=== PATIENT | male | born 1960 | race Caucasian/White ===

== ENCOUNTER 2019-03-28 21:46 | Inpatient (IN) | payer BC ==
[~2019-03-28] VITALS: Ht 177.8 cm; Wt 120.0 kg
[2019-03-28] MEDS ORDERED: nitroGLYCERIN 0.4mg SUBLingual tab SL PRN ×2 (22:15→23:15)
[2019-03-28 22:17] LABS: BASOPHILS # (AUTO) 0.1 X10'3 (0-0.2); BASOPHILS % (AUTO) 1.2 % (0-1); EOSINOPHILS # (AUTO) 0.3 X10'3 (0-0.9); EOSINOPHILS % (AUTO) 4.1 % (0-6); HEMATOCRIT 42.6 % (42.0-52.0); HEMOGLOBIN 14.6 g/dl (14.0-17.9); LYMPHOCYTES # (AUTO) 1.9 X10'3 (1.1-4.8); LYMPHOCYTES % (AUTO) 22.2 % (21-51); MEAN CORPUSCULAR HEMOGLOBIN 32.8 PG (27.0-31.0); MEAN CORPUSCULAR HGB CONC 34.4 g/dL (33.0-36.5); MEAN CORPUSCULAR VOLUME 95.3 FL (78-98); MEAN PLATELET VOLUME 10.5 FL (7.4-10.4); MONOCYTES # (AUTO) 0.7 X10'3 (0-0.9); MONOCYTES % (AUTO) 8.4 % (2-12); NEUTROPHILS # (AUTO) 5.3 X10'3 (1.8-7.7); NEUTROPHILS % (AUTO) 64.1 % (42-75); PLATELET COUNT 144 X10'3 (140-440); RED BLOOD COUNT 4.47 X10'6 (4.70-6.10); WHITE BLOOD COUNT 8.3 X10'3 (4.5-11.0)
[2019-03-28 22:36] LABS: ALANINE AMINOTRANSFERASE 30 U/L (12-78); ALBUMIN 3.7 G/DL (3.4-5.0); ALBUMIN/GLOBULIN RATIO 1.1 (1.1-1.5); ALKALINE PHOSPHATASE 102 IU/L (46-116); ANION GAP 15 (8-16); ASPARTATE AMINO TRANSFERASE 18 U/L (10-37); BILIRUBIN,TOTAL 0.2 MG/DL (0.1-1.0); BLOOD UREA NITROGEN 16 MG/DL (7-18); CALCIUM 8.7 MG/DL (8.5-10.1); CHLORIDE 103 MMOL/L (99-107); CREATININE 1.33 MG/DL (0.60-1.10); GLUCOSE 170 MG/DL (70-104); POTASSIUM 3.9 MMOL/L (3.5-5.1); SODIUM 138 MMOL/L (135-145); TOTAL CARBON DIOXIDE 20.5 MMOL/L (24-32); eGFR 55 ML/MIN
[2019-03-28] MEDS ORDERED: FLO0.4C PO (23:04)
[2019-03-28] MEDS ORDERED: SIMV10TA2 PO (23:04)
[2019-03-28] MEDS ORDERED: OMEP40CA13 PO (23:04)
[2019-03-28] MEDS ORDERED: METF500T PO (23:04)
[2019-03-28] MEDS ORDERED: NABU750T2 PO (23:04)
[2019-03-28 23:11] LABS: LARGE PLATELETS FEW; PLATELET ESTIMATE NORMAL
[2019-03-28] MEDS ORDERED: magnesium hydroxide 30ml (MOM) UD suspension PO PRN (23:15)
[2019-03-28] MEDS ORDERED: aminophylline 250mg/10ml inj. IV PRN (23:15)
[2019-03-28] MEDS ORDERED: mag hydrox/Alum hydrox/simeth 30ml oral suspension PO PRN (23:15)
[2019-03-28] MEDS ORDERED: regadenoson 0.4mg/5ml syringe IV PRN (23:15)
[2019-03-28] MEDS ORDERED: acetaminophen 325mg tablet PO PRN (23:15)
[2019-03-28] MEDS ORDERED: metoprolol tartrate 1mg/ml inj IV PRN (23:15)
[2019-03-28] MEDS ORDERED: morphine 2 MG/ML inj. syringe IV PRN ×2 (23:15)
[2019-03-28] MEDS ORDERED: ondansetron/PF 4mg/2ml inj IV PRN (23:15)
[2019-03-28] MEDS: normal saline 1000ml 1,000 ML IV SCH (23:42)
[2019-03-29] VITALS (16 sets, daily range): BP systolic 129–172; BP diastolic 72–88
--- NOTE | 2019-03-29 00:57 | NUR ---
Pt. given hospital bed at this time.
[2019-03-29 01:44] LABS: ALANINE AMINOTRANSFERASE 28 U/L (12-78); ALBUMIN 3.3 G/DL (3.4-5.0); ALBUMIN/GLOBULIN RATIO 1.1 (1.1-1.5); ALKALINE PHOSPHATASE 93 IU/L (46-116); ANION GAP 11 (8-16); ASPARTATE AMINO TRANSFERASE 15 U/L (10-37); BILIRUBIN,TOTAL 0.2 MG/DL (0.1-1.0); BLOOD UREA NITROGEN 17 MG/DL (7-18); BUN/CREATININE RATIO 13.3 (5.4-32.0); CALCIUM 8.6 MG/DL (8.5-10.1); CHLORIDE 103 MMOL/L (99-107); CREATININE 1.28 MG/DL (0.60-1.10); GLUCOSE 163 MG/DL (70-104); POTASSIUM 4.1 MMOL/L (3.5-5.1); SODIUM 139 MMOL/L (135-145); TOTAL CARBON DIOXIDE 25.5 MMOL/L (24-32); TOTAL PROTEIN 6.3 G/DL (6.4-8.2); eGFR 57 ML/MIN
--- NOTE | 2019-03-29 02:57 | NUR ---
Pt. sleeping comfortably on his back. VS WNL. Rhytm NSR at a rate of 69/min.
--- NOTE | 2019-03-29 05:10 | NUR ---
Pt. continous to sleep comfortably. VS WNL. NSR at rate of 64/min.
--- NOTE | 2019-03-29 06:50 | NUR ---
Received report from IRAIDA Davis. Awaiting patient arrival to PCU.
--- NOTE | 2019-03-29 07:20 | NUR ---
Patient arrived to PCU 3024A on hospital bed from ED. Patient oriented to room and to call light. Vital signs: T 97.8, HR 60, RR: 18, O2: 98% on room air, BP 146/82. Pain 0/10. Telemetry monitoring initiated. All immediate needs met at this time.
[2019-03-29] MEDS ORDERED: aspirin 81mg tablet.DR PO SCH (08:00)
[2019-03-29 10:50] LABS: BASOPHILS # (AUTO) 0.1 X10'3 (0-0.2); BASOPHILS % (AUTO) 0.8 % (0-1); EOSINOPHILS # (AUTO) 0.3 X10'3 (0-0.9); EOSINOPHILS % (AUTO) 3.3 % (0-6); HEMATOCRIT 42.5 % (42.0-52.0); HEMOGLOBIN 14.7 g/dl (14.0-17.9); LYMPHOCYTES # (AUTO) 1.4 X10'3 (1.1-4.8); LYMPHOCYTES % (AUTO) 18.4 % (21-51); MEAN CORPUSCULAR HEMOGLOBIN 32.8 PG (27.0-31.0); MEAN CORPUSCULAR HGB CONC 34.6 g/dL (33.0-36.5); MEAN CORPUSCULAR VOLUME 94.8 FL (78-98); MEAN PLATELET VOLUME 10.5 FL (7.4-10.4); MONOCYTES # (AUTO) 0.7 X10'3 (0-0.9); NEUTROPHILS # (AUTO) 5.3 X10'3 (1.8-7.7); NEUTROPHILS % (AUTO) 68.5 % (42-75); PLATELET COUNT 145 X10'3 (140-440); RED BLOOD COUNT 4.48 X10'6 (4.70-6.10); RED CELL DISTRIBUTION WIDTH 12.9 % (11.5-14.5); WHITE BLOOD COUNT 7.8 X10'3 (4.5-11.0)
[2019-03-29] MEDS: atorvastatin 20mg tablet PO SCH (11:18)
[2019-03-29] MEDS: carVEDilol 3.125mg tablet PO SCH ×2 (11:18→20:27)
[2019-03-29] MEDS: normal saline 1000ml 1,000 ML IV SCH ×4 (11:19→21:53)
[2019-03-29] MEDS ORDERED: pneumococcal 23-VAL P-sac vacc 25 mcg/0.5ml vial IMVAC ONE (12:25)
[2019-03-29] MEDS ORDERED: fentaNYL/PF 50MCG/1 ML 2ML syringe ONE ×2 (16:00→16:31)
[2019-03-29] MEDS ORDERED: midazolam 2 mg/2 ml injection ONE ×2 (16:00→16:31)
[2019-03-29] MEDS ORDERED: iohexol 350MG/ML 100ml bottle IV ONE (16:01)
[2019-03-29] MEDS ORDERED: iohexol 350 MG/ML 50ML vial IV ONE (16:01)
[2019-03-29] MEDS ORDERED: LIDOcaine 1% (10mg/ml)w/preservative injection 20ml MDV ONE (16:01)
[2019-03-29] MEDS ORDERED: diphenhydrAMINE 50 mg/ml inj ONE (16:41)
[2019-03-29] MEDS ORDERED: tirofiban 5mg in NS 100mL 100 ML IV ONE (16:50)
[2019-03-29] MEDS ORDERED: heparin 1,000unit/ml 10ml vial 10 ML ONE (16:50)
[2019-03-29] MEDS ORDERED: heparin 25,000 UNIT/250ml bag 250 ML IV ONE (16:50)
[2019-03-29] MEDS ORDERED: methylPREDNISolone sod succ 125mg/2ml vial IV ONE (16:55)
[2019-03-29] MEDS ORDERED: predniSONE 20 mg tablet PO SCH (17:00)
[2019-03-29] MEDS ORDERED: nitroGLYCERIN-Tridil 50MG/D5W 250 ML IV ONE (17:13)
--- NOTE | 2019-03-29 17:41 | NUR ---
PAGER ID: [phone] MESSAGE: RE: John Garcia [id number]. FYI - patient had reaction to contrast during angiogram and sheath is still in place. Patient being transferred to ICU 2009. Thank you. Carla
[2019-03-29] MEDS ORDERED: insulin Lispro (HumaLOG) vial - multi-dose SQ SCH (18:00)
[2019-03-29] MEDS ORDERED: dextrose ORAL solution 15 GM/59 ML bottle PO PRN ×2 (18:00)
[2019-03-29] MEDS ORDERED: MESSAGE TO PHARMACY PO ONE (18:00)
[2019-03-29] MEDS ORDERED: dextrose 50%-water 50ml dispensing syringe IV PRN ×2 (18:00)
[2019-03-29] MEDS ORDERED: glucagon, human recombinant 1mg kit SUBCUT PRN (18:00)
[2019-03-29] MEDS ORDERED: cyclobenzaprine 10mg tablet PO PRN (18:05)
[2019-03-29] MEDS ORDERED: HYDROcodone/acetaminophen 10/325mg tab PO PRN ×2 (18:05)
[2019-03-29] MEDS ORDERED: magnesium hydroxide 30ml (MOM) UD suspension PO PRN (18:05)
[2019-03-29] MEDS ORDERED: acetaminophen 325mg tablet PO PRN (18:05)
[2019-03-29] MEDS ORDERED: proCHLORperazine 10 MG/2 ml inj IV PRN (18:05)
[2019-03-29] MEDS ORDERED: OXAZEpam 15mg capsule PO PRN (18:05)
--- NOTE | 2019-03-29 18:43 | NUR ---
Patient in room CICU 2009. I have received report from IRAIDA Portillo and had the opportunity to ask questions and assume patient care. Patient awake for bedside report and stable at this time. On room air with nitroglycerin infusing at 10 mcg, heparin at 10 U, and NS at 100 mL/hr. Will continue to monitor closely.
[2019-03-29] MEDS ORDERED: amLODIPine 2.5mg tablet PO SCH (20:00)
[2019-03-29] MEDS: tamsulosin 0.4mg capsule PO SCH (20:26)
[2019-03-29] MEDS: docusate sod 100mg capsule PO SCH (20:27)
[2019-03-29 20:53] LABS: HEMOGLOBIN A1C 7.5 % (4.5-6.2)
[2019-03-29] MEDS ORDERED: non-formulary drug (Simvastatin (Zocor) 1 TAB) PO SCH (21:00)
[2019-03-29] MEDS ORDERED: insulin glargine (Lantus) pen - multi-dose SQ SCH (21:00)
[2019-03-30] VITALS (25 sets, daily range): BP systolic 103–178; BP diastolic 59–91
[2019-03-30] MEDS ORDERED: heparin 25,000 UNIT/250ml bag 250 ML IV SCH (01:17)
[2019-03-30] MEDS ORDERED: heparin 10,000 units/1 ML INJ IV PRN (01:20)
[2019-03-30] MEDS ORDERED: nitroGLYCERIN-Tridil 50MG/D5W 250 ML IV SCH (02:25)
[2019-03-30 03:37] LABS: BASOPHILS # (AUTO) 0.1 X10'3 (0-0.2); BASOPHILS % (AUTO) 0.8 % (0-1); EOSINOPHILS % (AUTO) 0.1 % (0-6); HEMATOCRIT 42.8 % (42.0-52.0); HEMOGLOBIN 14.7 g/dl (14.0-17.9); LYMPHOCYTES # (AUTO) 0.7 X10'3 (1.1-4.8); LYMPHOCYTES % (AUTO) 7.6 % (21-51); MEAN CORPUSCULAR HEMOGLOBIN 32.5 PG (27.0-31.0); MEAN CORPUSCULAR HGB CONC 34.4 g/dL (33.0-36.5); MEAN CORPUSCULAR VOLUME 94.4 FL (78-98); MEAN PLATELET VOLUME 10.8 FL (7.4-10.4); MONOCYTES # (AUTO) 0.1 X10'3 (0-0.9); MONOCYTES % (AUTO) 0.8 % (2-12); NEUTROPHILS # (AUTO) 8.8 X10'3 (1.8-7.7); NEUTROPHILS % (AUTO) 90.7 % (42-75); PLATELET COUNT 150 X10'3 (140-440); RED BLOOD COUNT 4.53 X10'6 (4.70-6.10); WHITE BLOOD COUNT 9.7 X10'3 (4.5-11.0)
[2019-03-30 03:46] LABS: ALBUMIN 3.3 G/DL (3.4-5.0); ANION GAP 9 (8-16); BLOOD UREA NITROGEN 18 MG/DL (7-18); BUN/CREATININE RATIO 22.5 (5.4-32.0); CALCIUM 8.6 MG/DL (8.5-10.1); CHLORIDE 104 MMOL/L (99-107); GLUCOSE 242 MG/DL (70-104); POTASSIUM 4.2 MMOL/L (3.5-5.1); SODIUM 135 MMOL/L (135-145); TOTAL CARBON DIOXIDE 22.3 MMOL/L (24-32); eGFR > 90 ML/MIN
--- NOTE | 2019-03-30 06:39 | NUR ---
Problems reprioritized. Patient report given, questions answered & plan of care reviewed with IRAIDA Reyes.
--- NOTE | 2019-03-30 06:44 | NUR ---
Patient in room CICU 2009. I have received report from IRAIDA Breen and had the opportunity to ask questions and assume patient care.
[2019-03-30 06:53] LABS: LARGE PLATELETS FEW; PLATELET ESTIMATE NORMAL
[2019-03-30] MEDS ORDERED: MALTODEXTRIN/FRUCTOSE 0.68 KCAL/ML LIQUID 296ML BOTTLE PO ONE (07:15)
[2019-03-30] MEDS ORDERED: gabapentin 400mg capsule PO ONE (07:15)
[2019-03-30] MEDS ORDERED: cefazolin/dext.iso 2gm/100ml 100 ML IV ONE (07:15)
[2019-03-30] MEDS ORDERED: MESSAGE TO NURSING PO ONE ×4 (07:15→10:00)
[2019-03-30] MEDS ORDERED: pantoprazole 40mg Tablet.DR PO SCH (07:30)
[2019-03-30] MEDS ORDERED: ceFAZolin/D5W- 1GM premix 50 ML IV ONE (07:35)
[2019-03-30] MEDS ORDERED: insulin Lispro (HumaLOG) vial - multi-dose SQ STA (07:47)
[2019-03-30] MEDS ORDERED: predniSONE 20 mg tablet PO SCH (08:00)
[2019-03-30] MEDS ORDERED: aspirin 81mg tab.chew PO SCH (08:00)
[2019-03-30] MEDS ORDERED: mupirocin 2% ointment 22GM NS SCH (08:00)
[2019-03-30] MEDS ORDERED: ROPIVAcaine 0.5% (5mg/ml) 30ml vial ONE (08:30)
[2019-03-30] MEDS: tamsulosin 0.4mg capsule PO SCH (08:45)
[2019-03-30] MEDS: docusate sod 100mg capsule PO SCH ×2 (08:45→20:00)
[2019-03-30] MEDS: carVEDilol 3.125mg tablet PO SCH (08:46)
[2019-03-30] MEDS: atorvastatin 20mg tablet PO SCH (08:46)
[2019-03-30 10:36] LABS: PARTIAL THROMBOPLASTIN TIME 44 SECONDS (22-32)
[2019-03-30 10:41] LABS: CHOL/HDL RATIO 3.7 (0.00-4.99); CHOLESTEROL 177 MG/DL (0-200); HDL CHOLESTEROL 48 MG/DL (35-60); LDL CHOLESTEROL 122 MG/DL (50-100); TRIGLYCERIDES 85 MG/DL (20-135)
[2019-03-30] MEDS ORDERED: LORazepam 2 mg/ml vial IV ONE (11:00)
[2019-03-30] MEDS ORDERED: famotidine 10mg tablet PO ONE (11:00)
[2019-03-30] MEDS ORDERED: dextrose 50%-water 50ml dispensing syringe IV PRN ×2 (11:10→15:25)
[2019-03-30] MEDS ORDERED: MIDAZolam 5mg/5ml vial ONE (11:10)
[2019-03-30] MEDS ORDERED: SUFENTANIL CITRATE 50 MCG/ML 2ml ampule IV ONE (11:10)
[2019-03-30] MEDS ORDERED: propofol inj 20 ML IV ONE (11:10)
[2019-03-30 11:11] LABS: ABG BASE EXCESS 0.6 mmol/L (-2.0-3.0); ABG HCO3 24.1 mmol/L (22.0-26.0); ABG OXYGEN SATURATION 93.5 % (95-98); ABG PCO2 (T) 35.4 mmHg (35.0-45.0); ABG PH (T) 7.451 (7.350-7.450); ABG PO2 (T) 65.8 mmHg (83-108); ALLEN'S TEST Positive; FCOHb 0.3 % (0.5-1.5); FMetHb 0.2 % (0.3-1.12); TOTAL HEMOGLOBIN 15.1 G/dl (14.0-17.9)
--- NOTE | 2019-03-30 11:30 | NUR ---
Pre op CABG check list reviewed with surgical RNs, all procedures,skin prep,lab work and teaching complete,family at bedside pt remains npo,ensure liquid drink given at 100 blood glucose rechecked =312,surgical RNs aware,pt sent to surgery at 1145
[2019-03-30] MEDS ORDERED: sevoflurane 250ml liquid IH ONE (11:53)
[2019-03-30] MEDS ORDERED: aminocaproic acid 250 MG/1 ML inj. ONE (11:53)
[2019-03-30] MEDS ORDERED: nitroGLYCERIN in D5W 50mg/250ml (Tridil) infusion IV ONE (11:53)
[2019-03-30] MEDS ORDERED: protamine sulf. 10mg/ml inj. IV ONE (11:53)
[2019-03-30 12:17] LABS: CLARITY,URINE CLEAR (Clear); COLOR,URINE STRAW (Yellow); GLUCOSE, URINE >=1000 mg/dl (Neg); KETONES,URINE NEGATIVE (Neg); LEUKOCYTE ESTERASE ,URINE NEGATIVE (Neg); NITRITES, URINE NEGATIVE (Neg); OCCULT BLOOD,URINE NEGATIVE (Neg); PROTEIN,URINE NEGATIVE (Neg); UROBILINOGEN,URINE 0.2 E.U/dL (0.2-1.0)
[2019-03-30 12:26] LABS: UA COLLECTION TYPE VOIDED
[2019-03-30 12:27] LABS: BACTERIA,URINE NONE SEEN /HPF (Neg); MUCUS STRANDS NONE SEEN /LPF (Neg); RBC,URINE 0-2 /HPF (0-2); SQUAMOUS EPITHELIAL CELL,UR NONE SEEN /LPF (FEW); WBC,URINE 0-4 /HPF (0-4)
[2019-03-30 12:45] LABS: ABG BASE EXCESS -4.8 mmol/L (-2.0-3.0); ABG HCO3 20.9 mmol/L (22.0-26.0); ABG OXYGEN SATURATION 92.5 % (95-98); ABG PH 7.326 (7.350-7.450); ABG PO2 66.9 mmHg (60.0-100.0); CL (ABG) 105 mmol/L (99-107); FCOHb 1.1 % (0.5-1.5); FMetHb 0.2 % (0.3-1.12); FO2Hb 91.3 % (94-100); GLUCOSE (ABG) 283 mg/dl (70-104); IONIZED CA (ABG) 1.21 mmol/L (1.03-1.32); K (ABG) 4.2 mmol/L (3.3-5.1); NA (ABG) 137 mmol/L (135-145); TOTAL HEMOGLOBIN 14.2 G/dl (14.0-17.9)
[2019-03-30] MEDS ORDERED: heparin 10,000 units/1 ML INJ IR ONE (13:07)
[2019-03-30 13:15] LABS: ABG BASE EXCESS VENOUS -4.8 mmol/L; ABG HCO3 VENOUS 22.2 mmol/L; ABG PO2 VENOUS 48.5 mmHg; CL (ABG) 104 mmol/L (99-107); FCOHb VENOUS 1.2 %; FHHb VENOUS 18.9 %; FMetHb VENOUS 0.1 %; FO2Hb VENOUS 79.8 %; GLUCOSE (ABG) 288 mg/dl (70-104); IONIZED CA (ABG) 1.18 mmol/L (1.03-1.32); K (ABG) 4.4 mmol/L (3.3-5.1); NA (ABG) 137 mmol/L (135-145)
[2019-03-30 13:35] LABS: ACT @ 1.70 U 235 SEC (193-297); ACT @ 2.84 U 316 SEC (260-420); BASELINE ACT 119 SEC (101-148)
[2019-03-30 13:40] LABS: ABG BASE EXCESS -3.1 mmol/L (-2.0-3.0); ABG HCO3 21.8 mmol/L (22.0-26.0); ABG OXYGEN SATURATION 99.6 % (95-98); ABG PCO2 38.6 mmHg (35.0-45.0); ABG PO2 391.3 mmHg (60.0-100.0); CL (ABG) 104 mmol/L (99-107); FCOHb 0.7 % (0.5-1.5); FMetHb 0.3 % (0.3-1.12); FO2Hb 98.6 % (94-100); GLUCOSE (ABG) 245 mg/dl (70-104); IONIZED CA (ABG) 1.07 mmol/L (1.03-1.32); K (ABG) 5.7 mmol/L (3.3-5.1); NA (ABG) 133 mmol/L (135-145); TOTAL HEMOGLOBIN 11.7 G/dl (14.0-17.9)
[2019-03-30 14:10] LABS: ABG BASE EXCESS -0.4 mmol/L (-2.0-3.0); ABG HCO3 25.1 mmol/L (22.0-26.0); ABG PH 7.365 (7.350-7.450); ABG PO2 311.1 mmHg (60.0-100.0); CL (ABG) 103 mmol/L (99-107); FCOHb 0.9 % (0.5-1.5); FMetHb 0.4 % (0.3-1.12); FO2Hb 97.7 % (94-100); GLUCOSE (ABG) 225 mg/dl (70-104); IONIZED CA (ABG) 1.56 mmol/L (1.03-1.32); K (ABG) 5.1 mmol/L (3.3-5.1); NA (ABG) 130 mmol/L (135-145); TOTAL HEMOGLOBIN 11.4 G/dl (14.0-17.9)
[2019-03-30 14:26] LABS: ABG BASE EXCESS VENOUS -2.6 mmol/L; ABG HCO3 VENOUS 23.2 mmol/L; ABG PCO2 VENOUS 43.8 mmHg; ABG PO2 VENOUS 46.3 mmHg; CL (ABG) 105 mmol/L (99-107); FCOHb VENOUS 1.2 %; FHHb VENOUS 19.5 %; FMetHb VENOUS 0.3 %; GLUCOSE (ABG) 224 mg/dl (70-104); IONIZED CA (ABG) 1.22 mmol/L (1.03-1.32); K (ABG) 4.9 mmol/L (3.3-5.1); NA (ABG) 134 mmol/L (135-145); TOTAL HEMOGLOBIN 12.5 G/dl (14.0-17.9)
[2019-03-30 14:31] LABS: ACTIVATED CLOTTING TIME 88 SEC (101-148)
[2019-03-30] MEDS ORDERED: acetaminophen 1,000mg/100ml IV 100 ML IV ONE (14:37)
[2019-03-30] MEDS ORDERED: rocuronium 10mg/ml inj IV ONE (14:37)
[2019-03-30] MEDS ORDERED: nitroGLYCERIN-Tridil 50MG/D5W 250 ML IV PRN (15:23)
[2019-03-30] MEDS ORDERED: phenylephrine inj 50 MG in normal saline 250ml IV soln 250 ML IV PRN (15:23)
[2019-03-30] MEDS ORDERED: DOPamine 400mg/D5W 250ml 250 ML IV PRN (15:23)
[2019-03-30] MEDS ORDERED: niCARDipine-NS 40mg/200ml IVPB 200 ML IV PRN (15:23)
[2019-03-30] MEDS ORDERED: potassium Cl 20 mEq SR tablet PO PRN (15:25)
[2019-03-30] MEDS ORDERED: metoclopramide 5 mg/ml inj IV PRN (15:25)
[2019-03-30] MEDS ORDERED: acetaminophen 325mg tablet PO PRN ×2 (15:25)
[2019-03-30] MEDS ORDERED: magnesium hydroxide 30ml (MOM) UD suspension PO PRN (15:25)
[2019-03-30] MEDS ORDERED: pantoprazole 40 MG vial IV ONE (15:25)
[2019-03-30] MEDS ORDERED: insulin regular, human inj. 100 UNITS in normal saline 100ml IV soln 100 ML IV SCH ×2 (15:25)
[2019-03-30] MEDS ORDERED: sodium phosphate inj. 30 MMOL in dextrose 5%-water 250 ML IV PRN (15:25)
[2019-03-30] MEDS ORDERED: magnesium 4gm in 100ml NS 100 ML IV PRN (15:25)
[2019-03-30] MEDS ORDERED: albumin (Human) 5% 250ml 250 ML IV PRN (15:25)
[2019-03-30] MEDS ORDERED: sodium phosphate inj. 15 MMOL in dextrose 5%-water 150 ML IV PRN (15:25)
[2019-03-30] MEDS ORDERED: magnesium 2GM in 50ml NS 50 ML IV PRN (15:25)
[2019-03-30] MEDS ORDERED: Neutra Phos packet PO PRN (15:25)
[2019-03-30] MEDS ORDERED: ondansetron/PF 4mg/2ml inj IV PRN (15:25)
[2019-03-30] MEDS ORDERED: HYDROcodone/acetaminophen 10/325mg tab PO PRN ×2 (15:25)
[2019-03-30] MEDS ORDERED: normal saline 250ml IV soln 250 ML IV PRN (15:25)
--- NOTE | 2019-03-30 15:45 | NUR ---
Received to room 2010, accompanied by Juan Manuel Palomino, and Dr Walker anesthesia and surgical crew. Placed on ventilator, to cardiac cath lab technologist, arterial line and PA line pressure monitored. Chest tubes to suction at 20 cm. Mao cath to gravity drainage. Dressings are dry and intact. See assessment record. All vasoactive drugs are infusing via central line.
[2019-03-30 15:55] LABS: ABG BASE EXCESS -2.4 mmol/L (-2.0-3.0); ABG HCO3 24.5 mmol/L (22.0-26.0); ABG OXYGEN SATURATION 93.7 % (95-98); ABG PCO2 (T) 50.5 mmHg (35.0-45.0); ABG PH (T) 7.304 (7.350-7.450); ABG PO2 (T) 76.1 mmHg (83-108); FCOHb 0.1 % (0.5-1.5); FMetHb 0.3 % (0.3-1.12); FO2Hb 93.3 % (94-100); MINUTE VOLUME 9 L/min; PEEP 5 cm H2O; RESPIRATORY RATE 12 b/min; TIDAL VOLUME 600 mL; TOTAL HEMOGLOBIN 14.7 G/dl (14.0-17.9)
[2019-03-30] MEDS: morphine 4 MG/ML inj SYRINge IV PRN ×4 (16:11→23:07)
[2019-03-30 16:24] LABS: BASOPHILS # (AUTO) 0.1 X10'3 (0-0.2); BASOPHILS % (AUTO) 0.5 % (0-1); EOSINOPHILS % (AUTO) 0.1 % (0-6); HEMATOCRIT 40.6 % (42.0-52.0); HEMOGLOBIN 13.9 g/dl (14.0-17.9); LYMPHOCYTES # (AUTO) 0.6 X10'3 (1.1-4.8); LYMPHOCYTES % (AUTO) 2.7 % (21-51); MEAN CORPUSCULAR HEMOGLOBIN 32.9 PG (27.0-31.0); MEAN CORPUSCULAR HGB CONC 34.3 g/dL (33.0-36.5); MEAN CORPUSCULAR VOLUME 95.8 FL (78-98); MEAN PLATELET VOLUME 11.1 FL (7.4-10.4); MONOCYTES # (AUTO) 1.2 X10'3 (0-0.9); MONOCYTES % (AUTO) 5.3 % (2-12); NEUTROPHILS # (AUTO) 21.6 X10'3 (1.8-7.7); NEUTROPHILS % (AUTO) 91.4 % (42-75); PLATELET COUNT 132 X10'3 (140-440); RED BLOOD COUNT 4.23 X10'6 (4.70-6.10); RED CELL DISTRIBUTION WIDTH 12.9 % (11.5-14.5); WHITE BLOOD COUNT 23.6 X10'3 (4.5-11.0)
[2019-03-30 16:35] LABS: PARTIAL THROMBOPLASTIN TIME 26 SECONDS (22-32)
[2019-03-30 16:37] LABS: ALANINE AMINOTRANSFERASE 28 U/L (12-78); ALBUMIN 3.2 G/DL (3.4-5.0); ALBUMIN/GLOBULIN RATIO 1.2 (1.1-1.5); ALKALINE PHOSPHATASE 70 IU/L (46-116); ANION GAP 7 (8-16); ASPARTATE AMINO TRANSFERASE 25 U/L (10-37); BILIRUBIN,TOTAL 0.4 MG/DL (0.1-1.0); BLOOD UREA NITROGEN 13 MG/DL (7-18); BUN/CREATININE RATIO 13.8 (5.4-32.0); CALCIUM 8.2 MG/DL (8.5-10.1); CHLORIDE 108 MMOL/L (99-107); CREATININE 0.94 MG/DL (0.60-1.10); GLUCOSE 197 MG/DL (70-104); MAGNESIUM 2.5 MG/DL (1.5-2.4); PHOSPHORUS 2.4 MG/DL (2.3-4.5); POTASSIUM 4.4 MMOL/L (3.5-5.1); SODIUM 140 MMOL/L (135-145); TOTAL CARBON DIOXIDE 25.5 MMOL/L (24-32); TOTAL PROTEIN 5.8 G/DL (6.4-8.2); eGFR 82 ML/MIN
[2019-03-30] MEDS: ceFAZolin 1GM/D5W- ADD-VANTAGE 50 ML IV SCH (17:33)
--- NOTE | 2019-03-30 18:00 | NUR ---
Problems reprioritized. Patient report given,rn shift mgr questions answered & plan of care reviewed with .
--- NOTE | 2019-03-30 18:30 | NUR ---
dr braxton at bedside updated on labs, vs, neuro status, ct and urin output, CO/CI.
[2019-03-30] MEDS ORDERED: NORepinephrine 8mg/ 250ml NS 250 ML IV PRN (18:34)
--- NOTE | 2019-03-30 18:59 | NUR ---
Late entry:1830:Patient in room CICU 2009. I have received report from Vianey KHOURY and had the opportunity to ask questions and assume patient care. Pt opens eyes to voice, moves all extremities. Titrating Nitro per MD order. Dr. Palomino at bedside, update given, orders received. 1858: Dr. Olguin at bedside, update given, no new orders at this time.
[2019-03-30] MEDS: insulin Lispro (HumaLOG) vial - multi-dose SQ SCH (19:06)
[2019-03-30] MEDS: sodium chloride 0.45% 1,000 ML IV SCH (19:07)
[2019-03-30] MEDS: insulin regular, human 100 UNIT in normal saline 100ml IV soln 99 ML IV SCH ×2 (19:57)
[2019-03-30] MEDS: vancomycin/NS 1 GM ADD-VANTAGE 250 ML IV SCH (20:09)
[2019-03-30] MEDS: gabapentin 300mg capsule PO SCH (20:09)
[2019-03-30] MEDS: mupirocin 2% nasal ointment 1gm UD NS SCH (20:09)
[2019-03-30 21:30] LABS: BASOPHILS % (AUTO) 0.1 % (0-1); EOSINOPHILS % (AUTO) 0 % (0-6); HEMATOCRIT 36.7 % (42.0-52.0); HEMOGLOBIN 12.6 g/dl (14.0-17.9); LYMPHOCYTES # (AUTO) 0.6 X10'3 (1.1-4.8); MEAN CORPUSCULAR HEMOGLOBIN 32.8 PG (27.0-31.0); MEAN CORPUSCULAR HGB CONC 34.3 g/dL (33.0-36.5); MEAN CORPUSCULAR VOLUME 95.7 FL (78-98); MEAN PLATELET VOLUME 10.7 FL (7.4-10.4); MONOCYTES % (AUTO) 4.9 % (2-12); NEUTROPHILS # (AUTO) 18.7 X10'3 (1.8-7.7); PLATELET COUNT 130 X10'3 (140-440); RED BLOOD COUNT 3.84 X10'6 (4.70-6.10); RED CELL DISTRIBUTION WIDTH 13.3 % (11.5-14.5); WHITE BLOOD COUNT 20.3 X10'3 (4.5-11.0)
[2019-03-30 21:38] LABS: ALBUMIN 2.9 G/DL (3.4-5.0); ANION GAP 7 (8-16); BLOOD UREA NITROGEN 14 MG/DL (7-18); BUN/CREATININE RATIO 14.7 (5.4-32.0); CHLORIDE 110 MMOL/L (99-107); CREATININE 0.95 MG/DL (0.60-1.10); GLUCOSE 130 MG/DL (70-104); MAGNESIUM 2.1 MG/DL (1.5-2.4); POTASSIUM 4.1 MMOL/L (3.5-5.1); SODIUM 142 MMOL/L (135-145); TOTAL CARBON DIOXIDE 25.5 MMOL/L (24-32); eGFR 81 ML/MIN
[2019-03-30] MEDS: potassium Cl 20mEq/100mL bag 100 ML IV PRN (22:48)
[2019-03-31] VITALS (24 sets, daily range): BP systolic 93–155; BP diastolic 55–71
[2019-03-31] MEDS: potassium Cl 20mEq/100mL bag 100 ML IV PRN (00:10)
--- NOTE | 2019-03-31 00:20 | NUR ---
2340: Late entry: Arterial sheath d/c'd per protocol. Manual hold until hemostasis achieved. Morphine given for pain level of 7-10 per non verbal pain scale. Femostop applied, peripheral pulses intact. Weaning from ventilator in progress. Will continue to monitor.
[2019-03-31] MEDS: ceFAZolin 1GM/D5W- ADD-VANTAGE 50 ML IV SCH ×3 (01:50→16:15)
--- NOTE | 2019-03-31 02:26 | NUR ---
pre op meds non admin note: given pre op
--- NOTE | 2019-03-31 02:27 | NUR ---
Pt appears to be sleeping, denies pain when awake. Femostop in place, site soft, no obvious signs of hematoma, peripheral pulses intact. Weaning ventilator as tolerated. Vital signs stable, sats 95% on 40% FiO2. BP:136/65. Will continue to monitor.
[2019-03-31 03:39] LABS: BASOPHILS % (AUTO) 0.1 % (0-1); EOSINOPHILS % (AUTO) 0 % (0-6); HEMATOCRIT 37.7 % (42.0-52.0); HEMOGLOBIN 12.9 g/dl (14.0-17.9); LYMPHOCYTES # (AUTO) 0.7 X10'3 (1.1-4.8); LYMPHOCYTES % (AUTO) 3.5 % (21-51); MEAN CORPUSCULAR HEMOGLOBIN 32.7 PG (27.0-31.0); MEAN CORPUSCULAR HGB CONC 34.1 g/dL (33.0-36.5); MEAN CORPUSCULAR VOLUME 95.9 FL (78-98); MEAN PLATELET VOLUME 11.2 FL (7.4-10.4); MONOCYTES # (AUTO) 1.4 X10'3 (0-0.9); MONOCYTES % (AUTO) 7.1 % (2-12); NEUTROPHILS # (AUTO) 17.1 X10'3 (1.8-7.7); NEUTROPHILS % (AUTO) 89.3 % (42-75); PLATELET COUNT 136 X10'3 (140-440); RED BLOOD COUNT 3.93 X10'6 (4.70-6.10); RED CELL DISTRIBUTION WIDTH 13.1 % (11.5-14.5); WHITE BLOOD COUNT 19.2 X10'3 (4.5-11.0)
[2019-03-31 03:41] LABS: PARTIAL THROMBOPLASTIN TIME 23 SECONDS (22-32)
[2019-03-31 03:44] LABS: ALANINE AMINOTRANSFERASE 24 U/L (12-78); ALBUMIN/GLOBULIN RATIO 1.1 (1.1-1.5); ALKALINE PHOSPHATASE 66 IU/L (46-116); ANION GAP 9 (8-16); ASPARTATE AMINO TRANSFERASE 29 U/L (10-37); BILIRUBIN,TOTAL 0.3 MG/DL (0.1-1.0); BLOOD UREA NITROGEN 14 MG/DL (7-18); BUN/CREATININE RATIO 16.5 (5.4-32.0); CALCIUM 8.2 MG/DL (8.5-10.1); CHLORIDE 109 MMOL/L (99-107); CREATININE 0.85 MG/DL (0.60-1.10); GLUCOSE 132 MG/DL (70-104); MAGNESIUM 2.2 MG/DL (1.5-2.4); PHOSPHORUS 3.5 MG/DL (2.3-4.5); POTASSIUM 4.5 MMOL/L (3.5-5.1); SODIUM 141 MMOL/L (135-145); TOTAL CARBON DIOXIDE 22.7 MMOL/L (24-32); TOTAL PROTEIN 5.7 G/DL (6.4-8.2); eGFR > 90 ML/MIN
--- NOTE | 2019-03-31 03:45 | NUR ---
Lisha in place to Tom Cardenas Addendum: 03/31/19 at 0346 by Christen Sandoval RN Amended: Links added.
[2019-03-31 03:51] LABS: ABG BASE EXCESS -0.9 mmol/L (-2.0-3.0); ABG HCO3 22.9 mmol/L (22.0-26.0); ABG OXYGEN SATURATION 92.6 % (95-98); ABG PCO2 (T) 35.2 mmHg (35.0-45.0); ABG PO2 (T) 61.1 mmHg (83-108); FCOHb 0.1 % (0.5-1.5); FMetHb 0.1 % (0.3-1.12); FO2Hb 92.4 % (94-100); MINUTE VOLUME 10 L/min; PATIENT TEMPERATURE 36.9; PEEP 5 cm H2O; RESPIRATORY RATE (OBSERVED) 15 b/min; TOTAL HEMOGLOBIN 13.6 G/dl (14.0-17.9)
--- NOTE | 2019-03-31 03:58 | NUR ---
Extubated pt w/RT to 4LNC after SBT without incident. Strong cough, speaking clearly to questioning. Femostop in place, site soft, peripheral pulses intact.
[2019-03-31] MEDS: morphine 4 MG/ML inj SYRINge IV PRN ×2 (04:07→11:10)
[2019-03-31 04:42] LABS: LARGE PLATELETS FEW; PLATELET ESTIMATE DECREASED
[2019-03-31] MEDS: insulin regular, human 100 UNIT in normal saline 100ml IV soln 99 ML IV SCH ×4 (06:29→09:45)
--- NOTE | 2019-03-31 06:30 | NUR ---
Patient in room CICU 2009. I have received report from IRAIDA Velásquez and had the opportunity to ask questions and assume patient care.
--- NOTE | 2019-03-31 06:32 | NUR ---
Problems reprioritized. Patient report given, questions answered & plan of care reviewed with Janey KHOURY.
[2019-03-31] MEDS ORDERED: aspirin 325mg tablet, delayed-release (Ecotrin) PO SCH (08:00)
[2019-03-31] MEDS ORDERED: metoprolol tartrate 12.5mg (1/2 tablet) PO SCH (08:00)
[2019-03-31] MEDS: gabapentin 300mg capsule PO SCH ×3 (08:30→21:54)
--- NOTE | 2019-03-31 08:30 | NUR ---
Dr. Palomino by to round on patient, stated that the PA line can come out, will DC after morning breakfast when patient is back in bed. Dr. Palomino stated patient is doing well and no new orders at this time
[2019-03-31] MEDS: atorvastatin 10mg tablet PO SCH (08:31)
[2019-03-31] MEDS: mupirocin 2% nasal ointment 1gm UD NS SCH ×2 (08:31→19:29)
[2019-03-31] MEDS: docusate sod 100mg capsule PO SCH ×2 (08:31→19:31)
[2019-03-31] MEDS: tamsulosin 0.4mg capsule PO SCH (08:31)
[2019-03-31] MEDS: vancomycin/NS 1 GM ADD-VANTAGE 250 ML IV SCH ×2 (08:31→21:40)
[2019-03-31] MEDS: lisinopril 5mg tablet PO SCH (08:45)
[2019-03-31] MEDS: metoprolol tartrate 12.5mg (1/2 tablet) PO ONE ×2 (08:45→13:07)
[2019-03-31] MEDS: insulin glargine (Lantus) pen - multi-dose SQ SCH (10:35)
--- NOTE | 2019-03-31 11:03 | NUR ---
DM/CABG consult. Patient is s/p CABG x2 and with A1c of 7.5, will need written post cardiac surgery diet education handout, heart healthy handout, and written DM education handout with referral to outpatient DM class on saturday all with verbal review prior to discharge. Addendum: 03/31/19 at [address] Amended: Links added.
[2019-03-31] MEDS: insulin Lispro (HumaLOG) vial - multi-dose SQ SCH ×3 (11:26→19:28)
--- NOTE | 2019-03-31 18:31 | NUR ---
Problems reprioritized. Patient report given, questions answered & plan of care reviewed with Satnam RN.
[2019-03-31] MEDS ORDERED: amiodarone 150mg/dext, iso-os 100 ML IV ONE (18:45)
[2019-03-31] MEDS ORDERED: amiodarone 50MG/ML inj IV ONE (18:47)
[2019-03-31] MEDS: amiodarone/D5 360MG/200ML BAG 200 ML IV SCH (19:03)
[2019-03-31] MEDS: metoprolol tartrate 12.5mg (1/2 tablet) PO SCH (19:31)
[2019-04-01] VITALS (25 sets, daily range): BP systolic 89–147; BP diastolic 48–97
[2019-04-01] MEDS: ceFAZolin 1GM/D5W- ADD-VANTAGE 50 ML IV SCH (00:04)
[2019-04-01] MEDS: amiodarone/D5 360MG/200ML BAG 200 ML IV SCH ×3 (01:13→15:33)
[2019-04-01] MEDS: insulin regular, human 100 UNIT in normal saline 100ml IV soln 99 ML IV SCH ×2 (01:52)
[2019-04-01 04:45] LABS: BASOPHILS % (AUTO) 0.2 % (0-1); EOSINOPHILS % (AUTO) 0.1 % (0-6); HEMATOCRIT 36.3 % (42.0-52.0); HEMOGLOBIN 12.5 g/dl (14.0-17.9); LYMPHOCYTES # (AUTO) 1.2 X10'3 (1.1-4.8); LYMPHOCYTES % (AUTO) 7.8 % (21-51); MEAN CORPUSCULAR HEMOGLOBIN 33.3 PG (27.0-31.0); MEAN CORPUSCULAR HGB CONC 34.4 g/dL (33.0-36.5); MEAN CORPUSCULAR VOLUME 96.7 FL (78-98); MONOCYTES # (AUTO) 2.2 X10'3 (0-0.9); MONOCYTES % (AUTO) 13.9 % (2-12); NEUTROPHILS # (AUTO) 12.5 X10'3 (1.8-7.7); PLATELET COUNT 129 X10'3 (140-440); RED BLOOD COUNT 3.75 X10'6 (4.70-6.10); RED CELL DISTRIBUTION WIDTH 13.4 % (11.5-14.5)
[2019-04-01 05:15] LABS: ANION GAP 9 (8-16); BLOOD UREA NITROGEN 15 MG/DL (7-18); BUN/CREATININE RATIO 18.8 (5.4-32.0); CHLORIDE 105 MMOL/L (99-107); GLUCOSE 124 MG/DL (70-104); MAGNESIUM 2.1 MG/DL (1.5-2.4); SODIUM 138 MMOL/L (135-145); TOTAL CARBON DIOXIDE 24.2 MMOL/L (24-32); eGFR > 90 ML/MIN
[2019-04-01 05:18] LABS: PHOSPHORUS 3.4 MG/DL (2.3-4.5); POTASSIUM 4.4 MMOL/L (3.5-5.1)
[2019-04-01 05:59] LABS: PLATELET ESTIMATE DECREASED; TOTAL CELLS COUNTED 100
--- NOTE | 2019-04-01 06:34 | NUR ---
Problems reprioritized. Patient report given, questions answered & plan of care reviewed with Shannon Warren.
--- NOTE | 2019-04-01 06:34 | NUR ---
Patient in room CICU 2009. I have received report from IRAIDA Hay and had the opportunity to ask questions and assume patient care.
[2019-04-01] MEDS ORDERED: furosemide 40mg/4ml inj IV ONE (07:30)
[2019-04-01] MEDS: aspirin 81mg tablet.DR PO SCH (08:55)
[2019-04-01] MEDS: pantoprazole 40mg Tablet.DR PO SCH (08:55)
[2019-04-01] MEDS: gabapentin 300mg capsule PO SCH ×2 (08:55→17:42)
[2019-04-01] MEDS: atorvastatin 10mg tablet PO SCH (08:55)
[2019-04-01] MEDS: metoprolol tartrate 25mg tablet PO SCH ×2 (08:56→20:00)
[2019-04-01] MEDS: lisinopril 5mg tablet PO SCH (08:56)
[2019-04-01] MEDS: tamsulosin 0.4mg capsule PO SCH (08:56)
[2019-04-01] MEDS: docusate sod 100mg capsule PO SCH ×2 (08:57→21:04)
[2019-04-01] MEDS: mupirocin 2% nasal ointment 1gm UD NS SCH ×2 (08:58→21:04)
[2019-04-01] MEDS: metoprolol tartrate 12.5mg (1/2 tablet) PO SCH (08:58)
[2019-04-01] MEDS: insulin Lispro (HumaLOG) vial - multi-dose SQ SCH ×3 (09:00→18:00)
[2019-04-01] MEDS: ketorolac trometh. 30mg/ml inj. IV SCH ×3 (09:03→20:00)
[2019-04-01] MEDS ORDERED: amiodarone 150mg/dext, iso-os 100 ML IV ONE (09:15)
[2019-04-01] MEDS: insulin glargine (Lantus) pen - multi-dose SQ SCH ×2 (11:00→22:44)
[2019-04-01] MEDS ORDERED: digoxin 250mcg/ml 2ml ampule IV ONE (11:40)
[2019-04-01] MEDS ORDERED: midazolam 2 mg/2 ml injection ONE (13:55)
--- NOTE | 2019-04-01 14:26 | NUR ---
pt. was cardioverted at 1415. pt. now in sinus rhythm and HR is 64.
[2019-04-01] MEDS: morphine 4 MG/ML inj SYRINge IV PRN (14:41)
[2019-04-01] MEDS: sodium chloride 0.45% 1,000 ML IV SCH (15:23)
--- NOTE | 2019-04-01 16:00 | NUR ---
spoke to Dr. Palomino regarding amio drip rate. and he ordered for it to considered the pt. 3rd bag at this time. pt. has been switched to 0.5 mg/ min.
[2019-04-01] MEDS ORDERED: gabapentin 300mg capsule PO ONE (17:15)
--- NOTE | 2019-04-01 18:47 | NUR ---
Problems reprioritized. Patient report given, questions answered & plan of care reviewed with IRAIDA Patten.
[2019-04-01] MEDS ORDERED: digoxin 250mcg/ml 2ml ampule IV SCH (19:00)
--- NOTE | 2019-04-01 22:26 | NUR ---
This RN received notification of pt Dig level results 8.9. Arnav Denton APRN notified, order received to hold tomorrows dose of Digitalis. LINEN FOLDER advised pt is not having bradycardia or symptomatic and NSR by telemetry at this time. This RN will continue to monitor pt.
[2019-04-02] VITALS (15 sets, daily range): BP systolic 97–140; BP diastolic 60–83
[2019-04-02] MEDS: amiodarone/D5 360MG/200ML BAG 200 ML IV SCH (02:39)
[2019-04-02 03:31] LABS: BASOPHILS % (AUTO) 0.2 % (0-1); EOSINOPHILS # (AUTO) 0.1 X10'3 (0-0.9); EOSINOPHILS % (AUTO) 0.8 % (0-6); HEMATOCRIT 33.6 % (42.0-52.0); HEMOGLOBIN 11.4 g/dl (14.0-17.9); LYMPHOCYTES # (AUTO) 1.4 X10'3 (1.1-4.8); LYMPHOCYTES % (AUTO) 11.8 % (21-51); MEAN CORPUSCULAR HEMOGLOBIN 32.3 PG (27.0-31.0); MEAN CORPUSCULAR VOLUME 95.2 FL (78-98); MEAN PLATELET VOLUME 11.3 FL (7.4-10.4); MONOCYTES # (AUTO) 1.4 X10'3 (0-0.9); MONOCYTES % (AUTO) 11.9 % (2-12); NEUTROPHILS # (AUTO) 8.7 X10'3 (1.8-7.7); NEUTROPHILS % (AUTO) 75.3 % (42-75); RED BLOOD COUNT 3.53 X10'6 (4.70-6.10); RED CELL DISTRIBUTION WIDTH 13.2 % (11.5-14.5); WHITE BLOOD COUNT 11.6 X10'3 (4.5-11.0)
[2019-04-02] MEDS: ketorolac trometh. 30mg/ml inj. IV SCH (03:31)
[2019-04-02 03:37] LABS: ALBUMIN 2.8 G/DL (3.4-5.0); ANION GAP 3 (8-16); BLOOD UREA NITROGEN 18 MG/DL (7-18); BUN/CREATININE RATIO 20.7 (5.4-32.0); CALCIUM 7.9 MG/DL (8.5-10.1); CHLORIDE 104 MMOL/L (99-107); CREATININE 0.87 MG/DL (0.60-1.10); GLUCOSE 154 MG/DL (70-104); PHOSPHORUS 3.1 MG/DL (2.3-4.5); POTASSIUM 3.9 MMOL/L (3.5-5.1); SODIUM 136 MMOL/L (135-145); TOTAL CARBON DIOXIDE 29.1 MMOL/L (24-32); eGFR 90 ML/MIN
[2019-04-02 04:03] LABS: PLATELET COUNT 100 X10'3 (140-440)
--- NOTE | 2019-04-02 06:15 | NUR ---
Patient in room CICU 2009. I have received report from material handler 2nd shift and had the opportunity to ask questions and assume patient care.
[2019-04-02] MEDS ORDERED: furosemide 40mg/4ml inj IV ONE (07:05)
[2019-04-02] MEDS ORDERED: potassium Cl 20mEq/100mL bag 100 ML IV PRN (07:10)
[2019-04-02] MEDS ORDERED: magnesium 2GM in 50ml NS 50 ML IV PRN (07:10)
[2019-04-02] MEDS ORDERED: potassium Cl 20 mEq SR tablet PO PRN (07:10)
[2019-04-02] MEDS ORDERED: magnesium 4gm in 100ml NS 100 ML IV PRN (07:10)
[2019-04-02] MEDS: lisinopril 5mg tablet PO SCH (08:00)
[2019-04-02] MEDS: pantoprazole 40mg Tablet.DR PO SCH (08:31)
[2019-04-02] MEDS: metoprolol tartrate 25mg tablet PO SCH ×2 (08:31→20:41)
[2019-04-02] MEDS: atorvastatin 10mg tablet PO SCH (08:32)
[2019-04-02] MEDS: magnesium Cl slow-release 64mg tablet PO SCH ×2 (08:32→20:41)
[2019-04-02] MEDS: potassium Cl 20 mEq SR tablet PO SCH ×2 (08:32→20:40)
[2019-04-02] MEDS: tamsulosin 0.4mg capsule PO SCH (08:32)
[2019-04-02] MEDS: aspirin 81mg tablet.DR PO SCH (08:32)
[2019-04-02] MEDS: docusate sod 100mg capsule PO SCH ×2 (08:32→20:40)
[2019-04-02] MEDS: insulin Lispro (HumaLOG) vial - multi-dose SQ SCH ×3 (08:37→20:59)
--- NOTE | 2019-04-02 11:23 | NUR ---
Patient in room CICU 2009. I have received report from IRAIDA Downs and had the opportunity to ask questions and assume patient care.
--- NOTE | 2019-04-02 11:50 | NUR ---
tranferred to CELI on port monitor and room air without complication.
[2019-04-02] MEDS ORDERED: dextrose ORAL solution 15 GM/59 ML bottle PO PRN ×2 (12:10)
[2019-04-02] MEDS ORDERED: dextrose 50%-water 50ml dispensing syringe IV PRN ×2 (12:10)
[2019-04-02] MEDS ORDERED: glucagon, human recombinant 1mg kit SUBCUT PRN (12:10)
--- NOTE | 2019-04-02 12:45 | NUR ---
Initial: Pt seen by EITAN for written/verbal CABG/heart healthy/DM eds w/ RD contact information provided. LBM 03/29 receiving colace. Pt PO 75% avg NCS meals reports good appetite and declines additional proteins at this time. EITAN d/w RN for carb controlled diet per MD approval. Will continue to monitor. Rec: 1. advance diet per MD to carb controlled 2. routine bowel care 3. wt per rx Addendum: 04/02/19 at [address] Amended: Links added.
--- NOTE | 2019-04-02 18:30 | NUR ---
received report from IRAIDA Ortega
--- NOTE | 2019-04-02 19:05 | NUR ---
Problems reprioritized. Patient report given, questions answered & plan of care reviewed with IRAIDA Pendleton.
[2019-04-02] MEDS: insulin glargine (Lantus) pen - multi-dose SQ SCH (23:28)
[2019-04-03 02:00] VITALS: BP 145/76
[2019-04-03 06:00] VITALS: BP 155/85
[2019-04-03 06:20] LABS: ALBUMIN 2.8 G/DL (3.4-5.0); ANION GAP 7 (8-16); BASOPHILS % (AUTO) 0.5 % (0-1); BLOOD UREA NITROGEN 15 MG/DL (7-18); BUN/CREATININE RATIO 17.4 (5.4-32.0); CALCIUM 8.4 MG/DL (8.5-10.1); CHLORIDE 107 MMOL/L (99-107); CREATININE 0.86 MG/DL (0.60-1.10); EOSINOPHILS # (AUTO) 0.3 X10'3 (0-0.9); EOSINOPHILS % (AUTO) 3.1 % (0-6); GLUCOSE 99 MG/DL (70-104); HEMATOCRIT 34.4 % (42.0-52.0); HEMOGLOBIN 12.2 g/dl (14.0-17.9); LYMPHOCYTES # (AUTO) 1.4 X10'3 (1.1-4.8); MEAN CORPUSCULAR HEMOGLOBIN 33.6 PG (27.0-31.0); MEAN CORPUSCULAR HGB CONC 35.4 g/dL (33.0-36.5); MEAN CORPUSCULAR VOLUME 94.9 FL (78-98); MEAN PLATELET VOLUME 11.3 FL (7.4-10.4); MONOCYTES # (AUTO) 1.1 X10'3 (0-0.9); MONOCYTES % (AUTO) 11.3 % (2-12); NEUTROPHILS # (AUTO) 6.6 X10'3 (1.8-7.7); NEUTROPHILS % (AUTO) 70.1 % (42-75); PLATELET COUNT 129 X10'3 (140-440); POTASSIUM 3.8 MMOL/L (3.5-5.1); RED BLOOD COUNT 3.63 X10'6 (4.70-6.10); RED CELL DISTRIBUTION WIDTH 12.9 % (11.5-14.5); SODIUM 141 MMOL/L (135-145); TOTAL CARBON DIOXIDE 27.2 MMOL/L (24-32); WHITE BLOOD COUNT 9.4 X10'3 (4.5-11.0); eGFR > 90 ML/MIN
--- NOTE | 2019-04-03 06:36 | NUR ---
Patient in room MED 316. I have received report from IRAIDA Pendleton and had the opportunity to ask questions and assume patient care.
--- NOTE | 2019-04-03 06:39 | NUR ---
gave report to IRAIDA Ortega
[2019-04-03 07:54] LABS: MAGNESIUM 1.9 MG/DL (1.5-2.4)
[2019-04-03] MEDS ORDERED: amiodarone 200mg tablet PO SCH (08:00)
[2019-04-03] MEDS ORDERED: HYDR-4353 PO (08:17)
[2019-04-03] MEDS ORDERED: DOCU100C40 PO (08:17)
[2019-04-03] MEDS ORDERED: LISI-642 PO (08:17)
[2019-04-03] MEDS ORDERED: AMIO200T61 PO (08:17)
[2019-04-03] MEDS ORDERED: METO25TA6 PO (08:17)
[2019-04-03] MEDS: magnesium Cl slow-release 64mg tablet PO SCH (08:51)
[2019-04-03] MEDS: pantoprazole 40mg Tablet.DR PO SCH (08:52)
[2019-04-03] MEDS: docusate sod 100mg capsule PO SCH (08:52)
[2019-04-03] MEDS: aspirin 81mg tablet.DR PO SCH (08:54)
[2019-04-03] MEDS: atorvastatin 10mg tablet PO SCH (08:54)
[2019-04-03] MEDS: tamsulosin 0.4mg capsule PO SCH (08:54)
[2019-04-03 08:55] VITALS: BP_SYST 128
[2019-04-03] MEDS: metoprolol tartrate 25mg tablet PO SCH (08:55)
[2019-04-03] MEDS: lisinopril 5mg tablet PO SCH (08:55)
[2019-04-03] MEDS: potassium Cl 20 mEq SR tablet PO SCH (08:56)
[2019-04-03] MEDS: insulin Lispro (HumaLOG) vial - multi-dose SQ SCH (09:01)
--- NOTE | 2019-04-03 14:59 | NUR ---
PT. DISCHARGED FROM FACILITY AT 1045. PT. WAS WHEELED TO PRIVATE VEHICLE BY STAFF ACCOMPANIED BY . PT. SIGNED AND UNDERSTOOD ALL PAPERWORK. PT. IV WAS D/C INTACT. CALLED PT. PHARMACY AT [facility] TO VERIFY MEDS WERE RECEIVED. PT. LEFT WITH ALL BELONGINGS.
== END 2019-04-03 10:45 | disposition home health service (06) | DRG 234 ==
LOC: ER 21:47 → ED HOLD 23:13 → PCU 3S 03-29 07:45 → CICU 2S 03-29 17:42 → OBSVTOIN 03-30 09:30 → MED 3N 04-02 11:50
PROVIDERS: ADMIT Family Medicine; ATTEND Thoracic Surgery (Cardiothoracic Vascular Surgery)
PROC: 4A023N7 Measurement of Cardiac Sampling and Pressure, Left Heart, Percutaneous Approach (ICD-10-PCS; 2019-03-29)
PROC: 3E033HZ Introduction of Radioactive Substance into Peripheral Vein, Percutaneous Approach (ICD-10-PCS; 2019-03-29)
PROC: 4A02XM4 Measurement of Cardiac Total Activity, External Approach (ICD-10-PCS; 2019-03-29)
PROC: B2111ZZ Fluoroscopy of Multiple Coronary Arteries using Low Osmolar Contrast (ICD-10-PCS; 2019-03-29)
PROC: B2151ZZ Fluoroscopy of Left Heart using Low Osmolar Contrast (ICD-10-PCS; 2019-03-29)
PROC: 06BP4ZZ Excision of Right Saphenous Vein, Percutaneous Endoscopic Approach (ICD-10-PCS; 2019-03-30)
PROC: 02HV33Z Insertion of Infusion Device into Superior Vena Cava, Percutaneous Approach (ICD-10-PCS; 2019-03-30)
PROC: 02HP32Z Insertion of Monitoring Device into Pulmonary Trunk, Percutaneous Approach (ICD-10-PCS; 2019-03-30)
PROC: 4A133B3 Monitoring of Arterial Pressure, Pulmonary, Percutaneous Approach (ICD-10-PCS; 2019-03-30)
PROC: 4A1239Z Monitoring of Cardiac Output, Percutaneous Approach (ICD-10-PCS; 2019-03-30)
PROC: 5A1221Z Performance of Cardiac Output, Continuous (ICD-10-PCS; 2019-03-30)
PROC: B24BZZ4 Ultrasonography of Heart with Aorta, Transesophageal (ICD-10-PCS; 2019-03-30)
PROC: 021109W Bypass Coronary Artery, Two Arteries from Aorta with Autologous Venous Tissue, Open Approach (ICD-10-PCS; principal; 2019-03-30 11:53)
PROC: 5A2204Z Restoration of Cardiac Rhythm, Single (ICD-10-PCS; 2019-04-01)
DX: I25.110 Atherosclerotic heart disease of native coronary artery with unstable angina pectoris (principal); I48.19 Other persistent atrial fibrillation; E11.65 Type 2 diabetes mellitus with hyperglycemia; E66.01 Morbid (severe) obesity due to excess calories; G47.33 Obstructive sleep apnea (adult) (pediatric); K21.9 Gastro-esophageal reflux disease without esophagitis; I95.9 Hypotension, unspecified; R00.0 Tachycardia, unspecified; I12.9 Hypertensive chronic kidney disease with stage 1 through stage 4 chronic kidney disease, or unspecified chronic kidney disease; E11.22 Type 2 diabetes mellitus with diabetic chronic kidney disease; N18.3 Chronic kidney disease, stage 3 (moderate); E78.00 Pure hypercholesterolemia, unspecified; E78.5 Hyperlipidemia, unspecified; F17.210 Nicotine dependence, cigarettes, uncomplicated; N40.0 Benign prostatic hyperplasia without lower urinary tract symptoms; T50.8X5A Adverse effect of diagnostic agents, initial encounter; Z68.38 Body mass index [BMI] 38.0-38.9, adult; L27.0 Generalized skin eruption due to drugs and medicaments taken internally; Y92.238 Other place in hospital as the place of occurrence of the external cause
CPT/HCPCS: 0232T; 93306; 93312; 93325; 93458; 99285; Z7506; Z7508; 36415; 36600; 71045; 76937; 78452; 80048; 80053; 80061; 80162; 81001; 82330; 82435; 82803; 82947; 82948; 83036; 83735; 83880; 84100; 84132; 84295; 84484; 85018; 85025; 85347; 85384; 85610; 85730; 86885; 86900; 86901; 86920; 87081; 93005; 93017; 93880; 93970; 94002; 94003; 94010; 94760; 97116; 97161; 97530; 99152; 99153; A4618; A4620; A6258; A6402; A6449; A7000; A7048; A9500; C1713; C1751; C1769; C9113; G0378; J0131; J0280; J0282; J0690; J1160; J1200; J1644; J1815; J1885; J1940; J2001; J2060; J2250; J2270; J2370; J2704; J2720; J2785; J2795; J3010; J3246; J3370; J3475; J3480; J3490; J7030; J7040; J7050; J7120; J7512; P9045; Q9967

== ENCOUNTER 2019-06-01 15:43 | Inpatient (IN) | payer BC ==
[~2019-06-01] VITALS: Ht 177.8 cm; Wt 123.0 kg
[~2019-06-01 15:43] MED LIST: AMIO200T61 PO; DOCU100C40 PO; FLO0.4C PO; HYDR-4353 PO; LISI-642 PO; METF500T PO; METO25TA6 PO; NABU750T2 PO; OMEP40CA13 PO; SIMV10TA2 PO
[2019-06-01 17:29] LABS: BASOPHILS # (AUTO) 0.1 X10'3 (0-0.2); BASOPHILS % (AUTO) 0.8 % (0-1); EOSINOPHILS # (AUTO) 0.1 X10'3 (0-0.9); EOSINOPHILS % (AUTO) 1.1 % (0-6); HEMATOCRIT 41.1 % (42.0-52.0); HEMOGLOBIN 14.1 g/dl (14.0-17.9); LYMPHOCYTES # (AUTO) 1.3 X10'3 (1.1-4.8); LYMPHOCYTES % (AUTO) 10.9 % (21-51); MEAN CORPUSCULAR HEMOGLOBIN 31.9 PG (27.0-31.0); MEAN CORPUSCULAR HGB CONC 34.2 g/dL (33.0-36.5); MEAN CORPUSCULAR VOLUME 93.2 FL (78-98); MEAN PLATELET VOLUME 10.6 FL (7.4-10.4); MONOCYTES # (AUTO) 1.2 X10'3 (0-0.9); MONOCYTES % (AUTO) 10.1 % (2-12); NEUTROPHILS # (AUTO) 9.3 X10'3 (1.8-7.7); NEUTROPHILS % (AUTO) 77.1 % (42-75); PLATELET COUNT 156 X10'3 (140-440); RED BLOOD COUNT 4.41 X10'6 (4.70-6.10); RED CELL DISTRIBUTION WIDTH 13.1 % (11.5-14.5)
[2019-06-01 17:45] LABS: ALANINE AMINOTRANSFERASE 25 U/L (12-78); ALBUMIN 3.8 G/DL (3.4-5.0); ALKALINE PHOSPHATASE 95 IU/L (46-116); ANION GAP 11 (8-16); ASPARTATE AMINO TRANSFERASE 16 U/L (10-37); BILIRUBIN,TOTAL 0.6 MG/DL (0.1-1.0); BLOOD UREA NITROGEN 19 MG/DL (7-18); BUN/CREATININE RATIO 18.6 (5.4-32.0); CALCIUM 9.4 MG/DL (8.5-10.1); CHLORIDE 101 MMOL/L (99-107); CREATININE 1.02 MG/DL (0.60-1.10); GLUCOSE 112 MG/DL (70-104); POTASSIUM 3.9 MMOL/L (3.5-5.1); SODIUM 135 MMOL/L (135-145); TOTAL CARBON DIOXIDE 22.8 MMOL/L (24-32); TOTAL PROTEIN 7.7 G/DL (6.4-8.2); eGFR 74 ML/MIN
[2019-06-01] MEDS ORDERED: piperacillin/tazo 3.375gm/50ml 50 ML IV ONE (21:15)
[2019-06-01] MEDS ORDERED: iohexol 300mg/ml 100ml inj. ONE (21:29)
[2019-06-01] MEDS ORDERED: potassium CL 10mEq/100ml bag 100 ML IV PRN ×2 (23:35)
[2019-06-01] MEDS ORDERED: potassium Cl 20 mEq SR tablet PO PRN ×2 (23:35)
[2019-06-01] MEDS ORDERED: HYDROcodone/acetaminophen 5mg/325mg tablet PO PRN (23:35)
[2019-06-01] MEDS ORDERED: magnesium hydroxide 30ml (MOM) UD suspension PO PRN (23:35)
[2019-06-01] MEDS ORDERED: mag hydrox/Alum hydrox/simeth 30ml oral suspension PO PRN (23:35)
[2019-06-01] MEDS ORDERED: magnesium Cl slow-release 64mg tablet PO PRN (23:35)
[2019-06-01] MEDS ORDERED: acetaminophen 325mg tablet PO PRN ×2 (23:35)
[2019-06-01] MEDS ORDERED: magnesium 2GM in 50ml NS 50 ML IV PRN (23:35)
[2019-06-01] MEDS ORDERED: magnesium 4gm in 100ml NS 100 ML IV PRN (23:35)
[2019-06-01] MEDS ORDERED: morphine 2 MG/ML inj. syringe IV PRN ×2 (23:35)
[2019-06-01] MEDS ORDERED: ondansetron/PF 4mg/2ml inj IV PRN (23:35)
[2019-06-02] VITALS (7 sets, daily range): BP systolic 116–148; BP diastolic 73–91
--- NOTE | 2019-06-02 00:43 | NUR ---
Patient arrived to unit 0040 via . He walked from the wheelchair to the bathroom. He is in no apparent distress. I received report from IRAIDA Saravia prior to transport to unit
[2019-06-02 05:30] LABS: BASOPHILS # (AUTO) 0.1 X10'3 (0-0.2); BASOPHILS % (AUTO) 0.7 % (0-1); EOSINOPHILS # (AUTO) 0.2 X10'3 (0-0.9); EOSINOPHILS % (AUTO) 1.7 % (0-6); LYMPHOCYTES # (AUTO) 1.2 X10'3 (1.1-4.8); LYMPHOCYTES % (AUTO) 11.4 % (21-51); MEAN CORPUSCULAR HGB CONC 35.3 g/dL (33.0-36.5); MEAN CORPUSCULAR VOLUME 93.6 FL (78-98); MEAN PLATELET VOLUME 10.8 FL (7.4-10.4); MONOCYTES # (AUTO) 1.3 X10'3 (0-0.9); MONOCYTES % (AUTO) 12.3 % (2-12); NEUTROPHILS # (AUTO) 7.8 X10'3 (1.8-7.7); NEUTROPHILS % (AUTO) 73.9 % (42-75); PLATELET COUNT 147 X10'3 (140-440); RED BLOOD COUNT 3.95 X10'6 (4.70-6.10); WHITE BLOOD COUNT 10.6 X10'3 (4.5-11.0)
[2019-06-02 05:39] LABS: ALBUMIN 3.1 G/DL (3.4-5.0); ANION GAP 8 (8-16); BLOOD UREA NITROGEN 13 MG/DL (7-18); BUN/CREATININE RATIO 12.9 (5.4-32.0); CALCIUM 9.3 MG/DL (8.5-10.1); CHLORIDE 104 MMOL/L (99-107); CREATININE 1.01 MG/DL (0.60-1.10); GLUCOSE 172 MG/DL (70-104); MAGNESIUM 1.6 MG/DL (1.5-2.4); POTASSIUM 3.7 MMOL/L (3.5-5.1); SODIUM 139 MMOL/L (135-145); TOTAL CARBON DIOXIDE 27.2 MMOL/L (24-32); eGFR 75 ML/MIN
[2019-06-02] MEDS: piperacillin/tazo 3.375gm/50ml 50 ML IV SCH ×3 (05:54→23:37)
[2019-06-02 06:12] LABS: HEMOGLOBIN A1C 6.7 % (4.5-6.2)
--- NOTE | 2019-06-02 06:18 | NUR ---
Problems reprioritized. Patient report given, questions answered & plan of care reviewed with IRAIDA Hoffman.
--- NOTE | 2019-06-02 06:34 | NUR ---
Patient in room MARIO 355. I have received report from Dejon KHOURY and had the opportunity to ask questions and assume patient care.
[2019-06-02] MEDS: enoxaparin 40mg/0.4ml syringe SQ SCH (07:14)
[2019-06-02] MEDS: K and/or MAG REPLACEMENT MC SCH ×2 (08:00→20:00)
--- NOTE | 2019-06-02 18:12 | NUR ---
Problems reprioritized. Patient report given, questions answered & plan of care reviewed with Dejon KHOURY.
--- NOTE | 2019-06-02 18:18 | NUR ---
Patient in room MARIO 355. I have received report from IRAIDA Hoffman and had the opportunity to ask questions and assume patient care.
[2019-06-02] MEDS: lactobacillus rhamnosus 10,000 MMU CELLS/CAPSULE PO SCH (20:38)
[2019-06-03] VITALS: BP 137/91
[2019-06-03] MEDS: piperacillin/tazo 3.375gm/50ml 50 ML IV SCH ×3 (06:00→22:48)
[2019-06-03 06:12] LABS: ALBUMIN 3.1 G/DL (3.4-5.0); ANION GAP 11 (8-16); BLOOD UREA NITROGEN 11 MG/DL (7-18); BUN/CREATININE RATIO 11.7 (5.4-32.0); CALCIUM 9.2 MG/DL (8.5-10.1); CHLORIDE 105 MMOL/L (99-107); CREATININE 0.94 MG/DL (0.60-1.10); GLUCOSE 117 MG/DL (70-104); MAGNESIUM 1.6 MG/DL (1.5-2.4); SODIUM 141 MMOL/L (135-145); TOTAL CARBON DIOXIDE 24.6 MMOL/L (24-32); eGFR 82 ML/MIN
[2019-06-03 06:17] LABS: BASOPHILS # (AUTO) 0.1 X10'3 (0-0.2); BASOPHILS % (AUTO) 0.8 % (0-1); EOSINOPHILS # (AUTO) 0.2 X10'3 (0-0.9); EOSINOPHILS % (AUTO) 2.3 % (0-6); HEMATOCRIT 38.3 % (42.0-52.0); HEMOGLOBIN 13.3 g/dl (14.0-17.9); LYMPHOCYTES # (AUTO) 1.1 X10'3 (1.1-4.8); LYMPHOCYTES % (AUTO) 13.2 % (21-51); MEAN CORPUSCULAR HEMOGLOBIN 32.5 PG (27.0-31.0); MEAN CORPUSCULAR HGB CONC 34.6 g/dL (33.0-36.5); MEAN CORPUSCULAR VOLUME 93.9 FL (78-98); MEAN PLATELET VOLUME 10.1 FL (7.4-10.4); MONOCYTES # (AUTO) 1.1 X10'3 (0-0.9); MONOCYTES % (AUTO) 12.9 % (2-12); NEUTROPHILS # (AUTO) 5.9 X10'3 (1.8-7.7); NEUTROPHILS % (AUTO) 70.8 % (42-75); PLATELET COUNT 165 X10'3 (140-440); RED BLOOD COUNT 4.08 X10'6 (4.70-6.10); RED CELL DISTRIBUTION WIDTH 12.7 % (11.5-14.5); WHITE BLOOD COUNT 8.3 X10'3 (4.5-11.0)
--- NOTE | 2019-06-03 06:42 | NUR ---
Problems reprioritized. Patient report given, questions answered & plan of care reviewed with IRAIDA Talamantes.
[2019-06-03 08:00] VITALS: BP 130/85
[2019-06-03] MEDS: K and/or MAG REPLACEMENT MC SCH ×2 (08:00→20:00)
[2019-06-03] MEDS: lactobacillus rhamnosus 10,000 MMU CELLS/CAPSULE PO SCH ×2 (08:50→20:23)
[2019-06-03] MEDS: enoxaparin 40mg/0.4ml syringe SQ SCH (08:50)
[2019-06-03] MEDS: tamsulosin 0.4mg capsule PO SCH (08:50)
--- NOTE | 2019-06-03 10:18 | NUR ---
PAGER ID: [phone] MESSAGE: patient claims he is receiving the wrong dose of Flomax [id number]
[2019-06-03 11:00] VITALS: BP 125/89
[2019-06-03] MEDS ORDERED: VANCOMYCIN LEVEL IV ONE (11:30)
[2019-06-03 18:00] VITALS: BP 145/86
--- NOTE | 2019-06-03 18:20 | NUR ---
Patient in room MARIO 355. I have received report from Albin KHOURY and had the opportunity to ask questions and assume patient care.
[2019-06-04] VITALS (18 sets, daily range): BP systolic 132–156; BP diastolic 64–100
[2019-06-04 05:35] LABS: BASOPHILS # (AUTO) 0.1 X10'3 (0-0.2); BASOPHILS % (AUTO) 1.3 % (0-1); EOSINOPHILS # (AUTO) 0.3 X10'3 (0-0.9); EOSINOPHILS % (AUTO) 3.9 % (0-6); HEMATOCRIT 38.9 % (42.0-52.0); HEMOGLOBIN 13.3 g/dl (14.0-17.9); LYMPHOCYTES # (AUTO) 1.4 X10'3 (1.1-4.8); LYMPHOCYTES % (AUTO) 16.4 % (21-51); MEAN CORPUSCULAR HEMOGLOBIN 31.9 PG (27.0-31.0); MEAN CORPUSCULAR HGB CONC 34.2 g/dL (33.0-36.5); MEAN CORPUSCULAR VOLUME 93.2 FL (78-98); MEAN PLATELET VOLUME 9.8 FL (7.4-10.4); MONOCYTES # (AUTO) 1.2 X10'3 (0-0.9); MONOCYTES % (AUTO) 13.8 % (2-12); NEUTROPHILS # (AUTO) 5.5 X10'3 (1.8-7.7); NEUTROPHILS % (AUTO) 64.6 % (42-75); PLATELET COUNT 194 X10'3 (140-440); RED BLOOD COUNT 4.17 X10'6 (4.70-6.10); WHITE BLOOD COUNT 8.5 X10'3 (4.5-11.0)
[2019-06-04 05:54] LABS: ALBUMIN 3.1 G/DL (3.4-5.0); ANION GAP 11 (8-16); BLOOD UREA NITROGEN 10 MG/DL (7-18); BUN/CREATININE RATIO 10.1 (5.4-32.0); CALCIUM 9.1 MG/DL (8.5-10.1); CHLORIDE 105 MMOL/L (99-107); CREATININE 0.99 MG/DL (0.60-1.10); GLUCOSE 123 MG/DL (70-104); MAGNESIUM 1.8 MG/DL (1.5-2.4); SODIUM 139 MMOL/L (135-145); TOTAL CARBON DIOXIDE 23.1 MMOL/L (24-32); eGFR 77 ML/MIN
--- NOTE | 2019-06-04 06:47 | NUR ---
Problems reprioritized. Patient report given, questions answered & plan of care reviewed with Azra KHOURY.
[2019-06-04] MEDS: piperacillin/tazo 3.375gm/50ml 50 ML IV SCH ×3 (07:01→22:00)
[2019-06-04] MEDS: K and/or MAG REPLACEMENT MC SCH ×2 (07:42→20:00)
[2019-06-04] MEDS: tamsulosin 0.4mg capsule PO SCH ×2 (08:00→15:28)
[2019-06-04] MEDS: lactobacillus rhamnosus 10,000 MMU CELLS/CAPSULE PO SCH ×2 (08:00→19:35)
[2019-06-04] MEDS ORDERED: VANCOMYCIN LEVEL IV ONE (11:30)
--- NOTE | 2019-06-04 12:08 | NUR ---
PAGER ID: [phone] MESSAGE: LUZMA ShaneA : JERMAINE MAYEN VANCO 22.1. ALSO, FLOMAX ORDER IS 0.4 PATIENT TAKES 0.8 AT HOME. NOEMI, DEEDEE 1113
[2019-06-04] MEDS ORDERED: ringers solution, lacted 1,000 ML IV SCH (12:42)
[2019-06-04] MEDS ORDERED: morphine 4 MG/ML inj SYRINge IV PRN (12:45)
[2019-06-04] MEDS ORDERED: ondansetron/PF 4mg/2ml inj IV PRN (12:45)
[2019-06-04] MEDS ORDERED: meperidine/PF 25mg/ml syringe IV PRN ×2 (12:45)
[2019-06-04] MEDS ORDERED: proCHLORperazine 10 MG/2 ml inj IV PRN (12:45)
[2019-06-04] MEDS ORDERED: morphine 2 MG/ML inj. syringe IV PRN (12:45)
[2019-06-04] MEDS ORDERED: ceFAZolin 1000mg inj ONE (12:48)
[2019-06-04] MEDS ORDERED: desflurane 240ml liquid inh. IH ONE (12:52)
[2019-06-04] MEDS ORDERED: dexamethasone sod phosphate 10mg/ml inj ONE (12:52)
[2019-06-04] MEDS ORDERED: fentaNYL/PF 50MCG/1 ML 2ML syringe ONE (13:03)
[2019-06-04] MEDS ORDERED: midazolam 2 mg/2 ml injection ONE (13:03)
[2019-06-04] MEDS ORDERED: propofol inj 20 ML IV ONE (13:06)
[2019-06-04] MEDS ORDERED: LIDOcaine 2% (20mg/ml) 5ml vial ONE (13:06)
--- NOTE | 2019-06-04 13:45 | NUR ---
Received from OR via , accompanied by Anesthesiologist DR SIMMONS and report given by Anesthesiolgist. AWAKE AND STATES MODERATE PAIN TO RT GROIN. VITALS STABLE. DRESSING DI.
[2019-06-04] MEDS: meperidine/PF 25mg/ml syringe IV PRN ×4 (14:03→19:14)
--- NOTE | 2019-06-04 14:35 | NUR ---
Report called to receiving nurse. Transferred via BED Belongings . Special Issues communicated to receiving nurse. AWAKE AND ORIENTED. VITALS STABLE. DRESSING DI. STATES PAIN IMPROVING. TO SURGICAL RM 355A AT THIS TIME.
--- NOTE | 2019-06-04 14:54 | NUR ---
pt arrived from recovery, post-surgical. wound vac to right groin in place. pt A&Ox3 and denies pain at this time. post-op VS started.
[2019-06-04] MEDS: VANCOmycin 1250MG/NS 250ml Bag 250 ML IV SCH (19:35)
[2019-06-05] VITALS: BP 142/88
[2019-06-05] MEDS: VANCOmycin 1250MG/NS 250ml Bag 250 ML IV SCH ×2 (04:07→13:13)
[2019-06-05] MEDS: piperacillin/tazo 3.375gm/50ml 50 ML IV SCH ×2 (05:30→14:56)
[2019-06-05 06:33] LABS: BASOPHILS % (AUTO) 0.4 % (0-1); EOSINOPHILS % (AUTO) 0.1 % (0-6); HEMATOCRIT 40.1 % (42.0-52.0); HEMOGLOBIN 13.9 g/dl (14.0-17.9); LYMPHOCYTES # (AUTO) 0.9 X10'3 (1.1-4.8); LYMPHOCYTES % (AUTO) 8.3 % (21-51); MEAN CORPUSCULAR HEMOGLOBIN 32.4 PG (27.0-31.0); MEAN CORPUSCULAR HGB CONC 34.8 g/dL (33.0-36.5); MEAN CORPUSCULAR VOLUME 93.3 FL (78-98); MEAN PLATELET VOLUME 9.8 FL (7.4-10.4); MONOCYTES % (AUTO) 9.3 % (2-12); NEUTROPHILS # (AUTO) 8.5 X10'3 (1.8-7.7); NEUTROPHILS % (AUTO) 81.9 % (42-75); PLATELET COUNT 225 X10'3 (140-440); RED CELL DISTRIBUTION WIDTH 12.8 % (11.5-14.5); WHITE BLOOD COUNT 10.4 X10'3 (4.5-11.0)
[2019-06-05 06:52] LABS: ALBUMIN 2.9 G/DL (3.4-5.0); ANION GAP 12 (8-16); BLOOD UREA NITROGEN 13 MG/DL (7-18); BUN/CREATININE RATIO 14.6 (5.4-32.0); CALCIUM 8.6 MG/DL (8.5-10.1); CHLORIDE 103 MMOL/L (99-107); CREATININE 0.89 MG/DL (0.60-1.10); GLUCOSE 169 MG/DL (70-104); MAGNESIUM 1.9 MG/DL (1.5-2.4); POTASSIUM 4.1 MMOL/L (3.5-5.1); SODIUM 137 MMOL/L (135-145); TOTAL CARBON DIOXIDE 22.3 MMOL/L (24-32); eGFR 87 ML/MIN
[2019-06-05] MEDS: K and/or MAG REPLACEMENT MC SCH (07:03)
[2019-06-05 07:06] VITALS: BP 150/80
[2019-06-05] MEDS: tamsulosin 0.4mg capsule PO SCH (07:49)
[2019-06-05] MEDS: lactobacillus rhamnosus 10,000 MMU CELLS/CAPSULE PO SCH (07:49)
[2019-06-05] MEDS ORDERED: VANCOMYCIN LEVEL IV ONE (11:30)
--- NOTE | 2019-06-05 11:41 | NUR ---
WOUND VAC EDUCATION PROVIDED BY WOUND CARE 1. Patient instructed to call the Wound Center or their Home Health Agency immediately if: * They notice a change in the color or amount of the fluid in the canister. * Their wound looks more red than usual or has a foul smell. * The skin around their wound looks reddened or irritated. * The dressing feels loose or appears to be loose. * They experience any increase or changes in their pain. * The alarm will not turn off. 2. Patient instructed that they should not be disconnected from suction for more than 2 hours at a time. * If they are not able to get the suction back on, they need to remove the dressing and take all of the foam out of the wound. * Then moisten sterile gauze with normal saline and place on/in the wound. * Change the dressing once a day until arrangements have been made to replace the wound vac dressing. 3. Patient instructed to turn the wound vac machine OFF and call 911 or go to the ED immediately if their canister fills rapidly with blood. 4. If any of these occur while in the hospital tell a nurse immediately. Addendum: 06/05/19 at 1141 by Sol Damon RN Amended: Links added.
--- NOTE | 2019-06-05 15:50 | NUR ---
Initial: Pt admit with right medial thigh cellulitis. Pt s/p I&D with wound VAC placement 06/04. Pt and family seen at bedside provided with written and verbal protein education. Pt inquired about heart healthy and carb controlled diet education. Pt provided with written and verbal heart healthy education and verbal DM education. Pt declines need for written DM education as he just received it at last visit. Patient's current A1c is 6.7, down from 7.5 in March of last year. Pt expresses desire to attend outpatient CDE course. All of patients questions were answered at this time. RD contact information provided. Pt endorses a good appetite and denies food preferences or additional protein at this time, currently with fluctuating PO intake documented with 50-100% PO intake on heart healthy CHO controlled diet. Pt reports possible allergy to shellfish and denies difficulty chewing/swallowing or constipation/diarrhea. LB 06/04. Will continue to follow. Recommendations: 1) Continue heart healthy CHO controlled diet 2) Monitor need for additional protein 3) Bowel care PRN 4) Wt per rx Addendum: 06/05/19 at [address] Amended: Links added.
[2019-06-05] MEDS ORDERED: CIPR-20 PO (16:31)
[2019-06-05] MEDS ORDERED: LACT1CAP26 PO (16:31)
--- NOTE | 2019-06-05 17:47 | NUR ---
PT DISCHARGED IN STABLE CONDITION. LEFT FACILITY IN PRIVATE VEHICLE WITH FAMILY. WOUND VAC IN PLACE. IV DC CANULA INTACT. PT AWARE HE NEEDS TO CALL WOUND CARE ON SATURDAY TO GET WOUND VAC DRESSING CHANGED. PHONE # PROVIDED. PT AGREEABLE. FOLLOW UP INSTRUCTIONS GIVEN, ALL QUESTIONS ANSWERED. Addendum: 06/05/19 at 1749 by Lou Long RN Amended: Links added.
[2019-06-05] MEDS ORDERED: CIPR-230 PO (18:37)
== END 2019-06-05 17:45 | disposition home or self-care (01) | DRG 603 ==
LOC: ER 15:44 → ED HOLD 23:50 → SUR 3N 06-02 00:35
PROVIDERS: ADMIT Hospitalist; ATTEND Surgery
PROC: 0JCL0ZZ Extirpation of Matter from Right Upper Leg Subcutaneous Tissue and Fascia, Open Approach (ICD-10-PCS; principal; 2019-06-04 12:52)
DX: L02.415 Cutaneous abscess of right lower limb (principal); Z95.1 Presence of aortocoronary bypass graft; L03.115 Cellulitis of right lower limb; Z91.041 Radiographic dye allergy status; E78.00 Pure hypercholesterolemia, unspecified; I25.10 Atherosclerotic heart disease of native coronary artery without angina pectoris; Z87.891 Personal history of nicotine dependence; E11.9 Type 2 diabetes mellitus without complications
CPT/HCPCS: 10030; 96365; 99285; Z7506; 36415; 72132; 80048; 80053; 80202; 82948; 83036; 83735; 85025; 87070; 87075; 87077; 87081; 87186; 93971; A4618; A6550; A7000; G0378; J0690; J1100; J1650; J2001; J2175; J2250; J2543; J2704; J3010; J3370; J7120; Q9967

== ENCOUNTER 2019-06-12 09:30 | Day surgery (SDC) | payer BC ==
[~2019-06-12 09:30] MED LIST changes: -AMIO200T61 PO; +CIPR-230 PO; +LACT1CAP26 PO
== END 2019-06-12 11:41 | disposition home or self-care (01) ==
LOC: WOUND CARE 09:30
PROVIDERS: ATTEND Surgery
DX: T81.31XD Disruption of external operation (surgical) wound, not elsewhere classified, subsequent encounter (principal); E11.622 Type 2 diabetes mellitus with other skin ulcer; L98.492 Non-pressure chronic ulcer of skin of other sites with fat layer exposed; E11.65 Type 2 diabetes mellitus with hyperglycemia; K21.9 Gastro-esophageal reflux disease without esophagitis; I25.10 Atherosclerotic heart disease of native coronary artery without angina pectoris; B35.1 Tinea unguium; I10 Essential (primary) hypertension; E78.00 Pure hypercholesterolemia, unspecified; H93.19 Tinnitus, unspecified ear; Z87.891 Personal history of nicotine dependence; Z95.1 Presence of aortocoronary bypass graft; Y83.8 Other surgical procedures as the cause of abnormal reaction of the patient, or of later complication, without mention of misadventure at the time of the procedure
CPT/HCPCS: 36416; 82948; 97597; 97598

== ENCOUNTER 2019-06-19 09:35 | Day surgery (SDC) | payer BC ==
[~2019-06-19 09:35] MED LIST changes: -CIPR-230 PO
[2019-06-19] MEDS ORDERED: LIDOcaine 2% 5ml jelly ONE (10:17)
== END 2019-06-19 11:42 | disposition home or self-care (01) ==
LOC: WOUND CARE 09:35
PROVIDERS: ATTEND Surgery
DX: T81.31XD Disruption of external operation (surgical) wound, not elsewhere classified, subsequent encounter (principal); E11.622 Type 2 diabetes mellitus with other skin ulcer; L98.492 Non-pressure chronic ulcer of skin of other sites with fat layer exposed; E11.65 Type 2 diabetes mellitus with hyperglycemia; K21.9 Gastro-esophageal reflux disease without esophagitis; I25.10 Atherosclerotic heart disease of native coronary artery without angina pectoris; B35.1 Tinea unguium; I10 Essential (primary) hypertension; E78.00 Pure hypercholesterolemia, unspecified; H93.19 Tinnitus, unspecified ear; Z87.891 Personal history of nicotine dependence; Z95.1 Presence of aortocoronary bypass graft; Y83.8 Other surgical procedures as the cause of abnormal reaction of the patient, or of later complication, without mention of misadventure at the time of the procedure
CPT/HCPCS: 36416; 82948; 97597; 97598

== ENCOUNTER 2019-06-26 09:30 | Day surgery (SDC) | payer BC ==
[2019-06-26] MEDS ORDERED: LIDOcaine 2% 5ml jelly ONE (09:52)
== END 2019-06-26 11:03 | disposition home or self-care (01) ==
LOC: WOUND CARE 09:30
PROVIDERS: ATTEND Surgery
DX: T81.31XD Disruption of external operation (surgical) wound, not elsewhere classified, subsequent encounter (principal); E11.622 Type 2 diabetes mellitus with other skin ulcer; L98.492 Non-pressure chronic ulcer of skin of other sites with fat layer exposed; E11.65 Type 2 diabetes mellitus with hyperglycemia; K21.9 Gastro-esophageal reflux disease without esophagitis; I25.10 Atherosclerotic heart disease of native coronary artery without angina pectoris; B35.1 Tinea unguium; I10 Essential (primary) hypertension; E78.00 Pure hypercholesterolemia, unspecified; H93.19 Tinnitus, unspecified ear; Z87.891 Personal history of nicotine dependence; Z95.1 Presence of aortocoronary bypass graft; Y83.8 Other surgical procedures as the cause of abnormal reaction of the patient, or of later complication, without mention of misadventure at the time of the procedure
CPT/HCPCS: 97597; A4663

== ENCOUNTER 2019-07-03 09:25 | Day surgery (SDC) | payer BC ==
[2019-07-03] MEDS ORDERED: LIDOcaine 2% 5ml jelly ONE (10:04)
== END 2019-07-03 11:49 | disposition home or self-care (01) ==
LOC: WOUND CARE 09:25
PROVIDERS: ATTEND Surgery
DX: T81.31XD Disruption of external operation (surgical) wound, not elsewhere classified, subsequent encounter (principal); E11.622 Type 2 diabetes mellitus with other skin ulcer; L98.492 Non-pressure chronic ulcer of skin of other sites with fat layer exposed; E11.65 Type 2 diabetes mellitus with hyperglycemia; K21.9 Gastro-esophageal reflux disease without esophagitis; I25.10 Atherosclerotic heart disease of native coronary artery without angina pectoris; B35.1 Tinea unguium; I10 Essential (primary) hypertension; E78.00 Pure hypercholesterolemia, unspecified; H93.19 Tinnitus, unspecified ear; Z87.891 Personal history of nicotine dependence; Z95.1 Presence of aortocoronary bypass graft; Y83.8 Other surgical procedures as the cause of abnormal reaction of the patient, or of later complication, without mention of misadventure at the time of the procedure
CPT/HCPCS: 82948; 97597; A4663; A6021; A6154; A6196

== ENCOUNTER 2019-07-13 09:33 | Day surgery (SDC) | payer BC ==
[~2019-07-13 09:33] MED LIST changes: +LIDOcaine 2% 5ml jelly ONE
== END 2019-07-13 10:25 | disposition home or self-care (01) ==
LOC: WOUND CARE 09:33
PROVIDERS: ATTEND Surgery
DX: T81.31XD Disruption of external operation (surgical) wound, not elsewhere classified, subsequent encounter (principal); E11.622 Type 2 diabetes mellitus with other skin ulcer; L98.492 Non-pressure chronic ulcer of skin of other sites with fat layer exposed; E11.65 Type 2 diabetes mellitus with hyperglycemia; K21.9 Gastro-esophageal reflux disease without esophagitis; I25.10 Atherosclerotic heart disease of native coronary artery without angina pectoris; B35.1 Tinea unguium; I10 Essential (primary) hypertension; E78.00 Pure hypercholesterolemia, unspecified; H93.19 Tinnitus, unspecified ear; Z87.891 Personal history of nicotine dependence; Z95.1 Presence of aortocoronary bypass graft; Y83.8 Other surgical procedures as the cause of abnormal reaction of the patient, or of later complication, without mention of misadventure at the time of the procedure
CPT/HCPCS: 36416; 82948; 97597

== ENCOUNTER 2020-09-07 08:03 | Outpatient (CLI) | payer OTHER ==
[~2020-09-07 08:03] MED LIST changes: -LIDOcaine 2% 5ml jelly ONE; +LOP25T PO; -METO25TA6 PO; +NABU-141 PO; -NABU750T2 PO
[2020-09-07] MEDS ORDERED: iohexol 350MG/ML 100ml bottle IV ONE (08:20)
== END 2020-09-07 23:59 | disposition home or self-care (01) ==
LOC: 64 CT 08:03
PROVIDERS: ATTEND Internal Medicine Cardiovascular Disease
DX: I65.23 Occlusion and stenosis of bilateral carotid arteries (principal); M50.322 Other cervical disc degeneration at C5-C6 level; M48.02 Spinal stenosis, cervical region; M47.812 Spondylosis without myelopathy or radiculopathy, cervical region
CPT/HCPCS: 70498; Q9967

== ENCOUNTER 2021-10-20 20:04 | Emergency (ER) | payer BC, OTHER ==
[~2021-10-20] VITALS: Ht 175.3 cm; Wt 113.6 kg
[~2021-10-20 20:04] MED LIST changes: -OMEP40CA13 PO; +OMEP40CA21 PO
[2021-10-20 21:01] LABS: BASOPHILS # (AUTO) 0.1 X10'3 (0-0.2); EOSINOPHILS # (AUTO) 0.3 X10'3 (0-0.9); EOSINOPHILS % (AUTO) 2.8 % (0-6); HEMATOCRIT 43.7 % (42.0-52.0); HEMOGLOBIN 14.9 g/dl (14.0-17.9); LYMPHOCYTES # (AUTO) 1.9 X10'3 (1.1-4.8); LYMPHOCYTES % (AUTO) 19.5 % (21-51); MEAN CORPUSCULAR HEMOGLOBIN 32.2 PG (27.0-31.0); MEAN CORPUSCULAR HGB CONC 34.1 g/dL (33.0-36.5); MEAN CORPUSCULAR VOLUME 94.4 FL (78-98); MEAN PLATELET VOLUME 10.6 FL (7.4-10.4); MONOCYTES # (AUTO) 0.9 X10'3 (0-0.9); MONOCYTES % (AUTO) 8.7 % (2-12); NEUTROPHILS # (AUTO) 6.7 X10'3 (1.8-7.7); PLATELET COUNT 167 X10'3 (140-440); RED BLOOD COUNT 4.63 X10'6 (4.70-6.10); RED CELL DISTRIBUTION WIDTH 12.7 % (11.5-14.5); WHITE BLOOD COUNT 9.9 X10'3 (4.5-11.0)
[2021-10-20 21:10] LABS: ALANINE AMINOTRANSFERASE 45 U/L (12-78); ALBUMIN 3.8 G/DL (3.4-5.0); ALBUMIN/GLOBULIN RATIO 1.2 (1.1-1.5); ALKALINE PHOSPHATASE 80 IU/L (46-116); ANION GAP 11 (8-16); ASPARTATE AMINO TRANSFERASE 23 U/L (10-37); BILIRUBIN,TOTAL 0.3 MG/DL (0.1-1.0); BLOOD UREA NITROGEN 19 MG/DL (7-18); BUN/CREATININE RATIO 16.7 (5.4-32.0); CALCIUM 9.4 MG/DL (8.5-10.1); CHLORIDE 106 MMOL/L (99-107); CREATININE 1.14 MG/DL (0.60-1.10); GLUCOSE 98 MG/DL (70-104); POTASSIUM 4.2 MMOL/L (3.5-5.1); SODIUM 140 MMOL/L (135-145); TOTAL CARBON DIOXIDE 22.7 MMOL/L (24-32); TOTAL PROTEIN 6.9 G/DL (6.4-8.2); eGFR 65 ML/MIN
[2021-10-20 22:10] VITALS: BP 103/64
== END 2021-10-20 22:11 | disposition home or self-care (01) ==
LOC: ER 20:04
DX: R00.2 Palpitations (principal); R42 Dizziness and giddiness; R20.0 Anesthesia of skin; E78.00 Pure hypercholesterolemia, unspecified; E11.9 Type 2 diabetes mellitus without complications; F17.200 Nicotine dependence, unspecified, uncomplicated; Z88.8 Allergy status to other drugs, medicaments and biological substances; Z79.899 Other long term (current) drug therapy
CPT/HCPCS: 71045; 80053; 83880; 84484; 85025; 93005; 99285

== ENCOUNTER 2023-08-09 10:39 | Emergency (ER) | payer BC ==
[~2023-08-09] VITALS: Ht 175.3 cm; Wt 113.6 kg
[~2023-08-09 10:39] MED LIST changes: +SIMV-341 PO; -SIMV10TA2 PO
[2023-08-09 10:48] VITALS: TEMP 98
[2023-08-09 16:36] VITALS: BP 101/75; PULSE 88; RESP 16; O2SAT 99
== END 2023-08-09 16:39 | disposition home or self-care (01) ==
LOC: ER 10:40
DX: S76.111A Strain of right quadriceps muscle, fascia and tendon, initial encounter (principal); E78.00 Pure hypercholesterolemia, unspecified; E11.9 Type 2 diabetes mellitus without complications; F17.200 Nicotine dependence, unspecified, uncomplicated; Z91.041 Radiographic dye allergy status; Z79.899 Other long term (current) drug therapy; W10.9XXA Fall (on) (from) unspecified stairs and steps, initial encounter; Y93.89 Activity, other specified; Y92.89 Other specified places as the place of occurrence of the external cause; Y99.8 Other external cause status
CPT/HCPCS: 73564; 73590; 73718; 99284

== ENCOUNTER 2023-08-16 22:53 | Observation (INO) | payer BC ==
[~2023-08-16] VITALS: Ht 175.3 cm; Wt 117.0 kg
[2023-08-16 23:26] LABS: BASOPHILS # (AUTO) 0.1 X10'3 (0-0.2); BASOPHILS % (AUTO) 1.3 % (0-1); EOSINOPHILS # (AUTO) 0.3 X10'3 (0-0.9); EOSINOPHILS % (AUTO) 3.1 % (0-6); HEMATOCRIT 43.6 % (42.0-52.0); LYMPHOCYTES # (AUTO) 2.2 X10'3 (1.1-4.8); LYMPHOCYTES % (AUTO) 20.9 % (21-51); MEAN CORPUSCULAR HEMOGLOBIN 33.2 PG (27.0-31.0); MEAN CORPUSCULAR HGB CONC 34.3 g/dL (33.0-36.5); MEAN CORPUSCULAR VOLUME 96.7 FL (78-98); MEAN PLATELET VOLUME 10.4 FL (7.4-10.4); MONOCYTES % (AUTO) 9.5 % (2-12); NEUTROPHILS # (AUTO) 6.9 X10'3 (1.8-7.7); NEUTROPHILS % (AUTO) 65.2 % (42-75); PLATELET COUNT 197 X10'3 (140-440); RED BLOOD COUNT 4.51 X10'6 (4.70-6.10); WHITE BLOOD COUNT 10.6 X10'3 (4.5-11.0)
[2023-08-16 23:44] LABS: ALANINE AMINOTRANSFERASE 50 U/L (12-78); ALBUMIN 3.5 G/DL (3.4-5.0); ALKALINE PHOSPHATASE 110 IU/L (46-116); ANION GAP 14 (8-16); ASPARTATE AMINO TRANSFERASE 29 U/L (10-37); BILIRUBIN,TOTAL 0.4 MG/DL (0.1-1.0); BLOOD UREA NITROGEN 26 MG/DL (7-18); BUN/CREATININE RATIO 19.4 (10.0-20.0); CALCIUM 8.9 MG/DL (8.5-10.1); CHLORIDE 103 MMOL/L (99-107); CREATININE 1.34 MG/DL (0.60-1.10); GLUCOSE 206 MG/DL (70-104); POTASSIUM 3.9 MMOL/L (3.5-5.1); SODIUM 139 MMOL/L (135-145); TOTAL CARBON DIOXIDE 22.3 MMOL/L (24-32); eGFR 54 ML/MIN
[2023-08-16 23:45] LABS: PRO BRAIN NATRIURETIC PEPTIDE 63 PG/ML (0-125)
[2023-08-16] MEDS: diltiazem 5mg/ml 5ml inj. IV ONE ×2 (23:51→23:55)
[2023-08-16] MEDS: morphine 2 MG/ML inj. syringe IV ONE (23:58)
[2023-08-16] MEDS: nitroGLYCERIN 1gm ointment UD TP ONE (23:59)
[2023-08-17] VITALS (7 sets, daily range): BP systolic 103–126; BP diastolic 59–86; PULSE 61–74; RESP 14–18; TEMP 97.3–98; O2SAT 93–98
[2023-08-17] MEDS ORDERED: TADA10TA PO (00:03)
[2023-08-17] MEDS: aspirin 325mg tablet PO ONE (00:49)
[2023-08-17] MEDS: diltiazem-NS 100mg/100ml 100 ML IV SCH (01:20)
[2023-08-17] MEDS ORDERED: mag hydrox/Alum hydrox/simeth 30ml oral suspension PO PRN (04:40)
[2023-08-17] MEDS ORDERED: magnesium 2GM in 50ml NS 50 ML IV PRN (04:40)
[2023-08-17] MEDS ORDERED: ondansetron/PF 4mg/2ml inj IV PRN (04:40)
[2023-08-17] MEDS ORDERED: magnesium 4gm in 100ml NS 100 ML IV PRN (04:40)
[2023-08-17] MEDS ORDERED: magnesium Cl slow-release 64mg tablet PO PRN (04:40)
[2023-08-17] MEDS ORDERED: potassium Cl 40MEQ/1/2NS 520ml 520 ML IV PRN (04:40)
[2023-08-17] MEDS ORDERED: potassium Cl 20 mEq SR tablet PO PRN ×2 (04:40)
[2023-08-17] MEDS ORDERED: magnesium hydroxide 30ml (MOM) UD suspension PO PRN (04:40)
[2023-08-17] MEDS ORDERED: acetaminophen 325mg tablet PO PRN (04:40)
[2023-08-17] MEDS: ringers solution, lacted 1,000 ML IV SCH (04:48)
[2023-08-17] MEDS: K and/or MAG REPLACEMENT MC SCH (08:00)
[2023-08-17] MEDS: docusate sod 100mg capsule PO SCH (08:19)
[2023-08-17] MEDS: clopidogrel 75mg tablet PO SCH (08:19)
[2023-08-17] MEDS: lisinopril 10 MG tablet PO SCH (08:20)
[2023-08-17] MEDS: metoprolol succinate 25mg (24-HOUR) SR. Tablet PO SCH (08:20)
[2023-08-17] MEDS: atorvastatin 20mg tablet PO SCH (08:20)
[2023-08-17] MEDS: apixaban 5mg tablet PO SCH (20:11)
[2023-08-18 02:00] VITALS: BP 109/72; PULSE 73; RESP 16; TEMP 97.3; O2SAT 98
[2023-08-18 06:47] VITALS: BP 114/69; PULSE 74; RESP 16; TEMP 98.2; O2SAT 98
[2023-08-18 07:06] LABS: BASOPHILS % (AUTO) 0.5 % (0-1); EOSINOPHILS # (AUTO) 0.3 X10'3 (0-0.9); EOSINOPHILS % (AUTO) 3.9 % (0-6); HEMATOCRIT 36.9 % (42.0-52.0); HEMOGLOBIN 12.8 g/dl (14.0-17.9); LYMPHOCYTES # (AUTO) 1.3 X10'3 (1.1-4.8); MEAN CORPUSCULAR HEMOGLOBIN 33.3 PG (27.0-31.0); MEAN CORPUSCULAR HGB CONC 34.7 g/dL (33.0-36.5); MEAN CORPUSCULAR VOLUME 96.1 FL (78-98); MEAN PLATELET VOLUME 10.2 FL (7.4-10.4); MONOCYTES # (AUTO) 0.9 X10'3 (0-0.9); MONOCYTES % (AUTO) 11.3 % (2-12); NEUTROPHILS # (AUTO) 5.5 X10'3 (1.8-7.7); NEUTROPHILS % (AUTO) 68.3 % (42-75); PLATELET COUNT 161 X10'3 (140-440); RED BLOOD COUNT 3.84 X10'6 (4.70-6.10); RED CELL DISTRIBUTION WIDTH 12.9 % (11.5-14.5); WHITE BLOOD COUNT 8.1 X10'3 (4.5-11.0)
[2023-08-18 07:20] LABS: ALANINE AMINOTRANSFERASE 53 U/L (12-78); ALBUMIN 2.8 G/DL (3.4-5.0); ALKALINE PHOSPHATASE 69 IU/L (46-116); ANION GAP 4 (8-16); ASPARTATE AMINO TRANSFERASE 22 U/L (10-37); BILIRUBIN,TOTAL 0.3 MG/DL (0.1-1.0); BLOOD UREA NITROGEN 22 MG/DL (7-18); CALCIUM 8.5 MG/DL (8.5-10.1); CHLORIDE 108 MMOL/L (99-107); GLUCOSE 157 MG/DL (70-104); MAGNESIUM 1.6 MG/DL (1.5-2.4); PHOSPHORUS 3.1 MG/DL (2.3-4.5); POTASSIUM 4.5 MMOL/L (3.5-5.1); SODIUM 139 MMOL/L (135-145); TOTAL CARBON DIOXIDE 26.8 MMOL/L (24-32); TOTAL PROTEIN 5.7 G/DL (6.4-8.2); eCRCL 68 ML/MIN; eGFR 67 ML/MIN
[2023-08-18 07:23] VITALS: BP_SYST 150; PULSE 76
[2023-08-18 08:00] VITALS: RESP 15; O2SAT 97
[2023-08-18] MEDS ORDERED: APIX5TAB3 PO (10:38)
== END 2023-08-18 11:10 | disposition home or self-care (01) ==
LOC: ER 22:53 → ED HOLD 08-17 04:41 → PCU 3S 08-17 05:55
PROVIDERS: ADMIT Student in an Organized Health Care Education/Training Program; ATTEND Internal Medicine
DX: I48.0 Paroxysmal atrial fibrillation (principal); E11.9 Type 2 diabetes mellitus without complications; N17.9 Acute kidney failure, unspecified; I25.810 Atherosclerosis of coronary artery bypass graft(s) without angina pectoris; R00.2 Palpitations; E78.00 Pure hypercholesterolemia, unspecified; F17.210 Nicotine dependence, cigarettes, uncomplicated; Z95.1 Presence of aortocoronary bypass graft; Z88.8 Allergy status to other drugs, medicaments and biological substances; Z79.84 Long term (current) use of oral hypoglycemic drugs
CPT/HCPCS: 36415; 71045; 80053; 83735; 83880; 84100; 84484; 85025; 87081; 93005; 96361; 96374; 96375; 99291; G0378; J2270; J3490; J7120; 96372